=== PATIENT | male | born 1955 | race American Indian/Alaskan Native ===

== ENCOUNTER 2018-07-17 16:21 | Inpatient (IN) | payer BC ==
[2018-07-20 17:45] VITALS: BMI 31.8
[2018-07-20] MEDS ORDERED: Albuterol-Ipratrop 3 mg / 0.5 (3 ml) UD INH PRN (18:12)
[2018-07-20] MEDS ORDERED: Albuterol HFA 90 mcg/actuation (8 g) IH PRN (18:12)
[2018-07-20] MEDS ORDERED: Ergocalciferol 50,000 Intl Units Cap PO SCH (18:15)
[2018-07-20] MEDS ORDERED: Vancomycin 500 mg Inj IVPB SCH (19:15)
[2018-07-20 19:33] LABS: BASO # 0.2 K/uL (0.0-0.2); BASO % 1.1 % (0.0-2.0); EOS # 0.4 K/uL (0.0-0.7); EOS % 2.3 % (0.0-4.0); HEMOGLOBIN 10.2 g/dL (12.0-18.0); LYMPH # 1.6 K/uL (1.0-4.3); LYMPH % 10.4 % (20.0-40.0); MEAN CELL VOLUME 84.4 fl (80.0-94.0); MEAN CORPUSCULAR HEMOGLOBIN 27.2 pg (27.0-31.0); MEAN CORPUSCULAR HGB CONC 32.2 g/dL (33.0-37.0); MEAN PLATELET VOLUME 7.6 fl (7.2-11.7); MONO # 1.6 K/uL (0.0-0.8); MONO % 10.2 % (0.0-10.0); NEUT # 11.6 K/uL (1.8-7.0); NRBC % 0.1 % (0.0-0.0); RBC 3.74 Mil/uL (4.40-5.90); RED CELL DISTRIBUTION WIDTH 13.3 % (11.5-14.5); WHITE BLOOD COUNT 15.2 K/uL (4.8-10.8)
[2018-07-20 19:45] LABS: ALB/GLOB RATIO 0.8 (1.0-2.1); ALBUMIN 3.6 g/dL (3.5-5.0); ALT/SGPT 98 U/L (21-72); AST/SGOT 85 U/L (17-59); BLOOD UREA NITROGEN 17 mg/dl (9-20); CALCIUM 8.4 mg/dL (8.4-10.2); GFR NON-AFRICAN AMERICAN > 60
[2018-07-20] MEDS: oxyCODONE 10 mg Immediate Release Tab PO PRN (20:33)
[2018-07-20] MEDS: Fluticasone-Salmeterol 100-50mcg Diskus INH SCH ×2 (20:33→21:49)
[2018-07-20] MEDS ORDERED: Cefepime 1 GM in Sodium Chloride 0.9% 100 ML IVPB SCH (21:00)
[2018-07-20 22:27] LABS: URINE BACTERIA RARE (<OCC); URINE BILIRUBIN NEGATIVE (NEGATIVE); URINE BLOOD NEGATIVE (NEGATIVE); URINE CLARITY SLIGHTY-CLOUDY (Clear); URINE GLUCOSE (UA) NEG (NEGATIVE); URINE LEUKOCYTE ESTERASE NEG Leu/uL (Negative); URINE PROTEIN NEGATIVE (NEGATIVE)
[2018-07-20 22:57] LABS: URINE COLOR YELLOW (YELLOW)
[2018-07-21] MEDS: Aztreonam 1 GM in Sodium Chloride 0.9% 100 ML IVPB SCH ×3 (00:25→16:57)
[2018-07-21] MEDS: oxyCODONE 10 mg Immediate Release Tab PO PRN ×2 (03:31→11:36)
[2018-07-21] MEDS: Fluticasone-Salmeterol 100-50mcg Diskus INH SCH ×2 (09:09→21:28)
[2018-07-21] MEDS: Pantoprazole 40 mg EC Tab PO SCH (09:11)
[2018-07-21] MEDS: Multivitamin With Minerals Tab PO SCH (09:11)
[2018-07-21 11:53] LABS: HEMOGLOBIN 10.1 g/dL (12.0-18.0); MEAN CELL VOLUME 86.6 fl (80.0-94.0); MEAN CORPUSCULAR HEMOGLOBIN 27.7 pg (27.0-31.0); RBC 3.63 Mil/uL (4.40-5.90); RED CELL DISTRIBUTION WIDTH 13.2 % (11.5-14.5); WHITE BLOOD COUNT 13.9 K/uL (4.8-10.8)
[2018-07-21 12:09] LABS: SQUAMOUS EPITHIAL < 1 /hpf (0-5); URINE BILIRUBIN NEGATIVE (NEGATIVE); URINE BLOOD NEGATIVE (NEGATIVE); URINE CLARITY TURBID (Clear); URINE COLOR YELLOW (YELLOW); URINE GLUCOSE (UA) NEG (NEGATIVE); URINE LEUKOCYTE ESTERASE NEG Leu/uL (Negative); URINE PROTEIN NEGATIVE (NEGATIVE); URINE UROBILINOGEN 0.2-1.0 mg/dL (0.2-1.0)
[2018-07-21] MEDS: Magnesium Hydroxide Susp 30 ml UD PO PRN (12:49)
--- NOTE | 2018-07-21 13:03 | CP.PCM.CON ---
History of Present Illness - History of Present Illness History of Present Illness: 63 year old male referred for ID eval of post op fever s/p left TKR complicated by DVT at [facility] Past medical history: Asthma, HTN osteoarthritis s/p left total knee replacement, found to have a left popliteal DVT. Past surgical history: Left TKR Family history: + stroke and blood clots Social history: Denies tobacco, alcohol, and illicit drug use Allergies: PCN, shellfish Review of Systems - Review of Systems All systems: reviewed and no additional remarkable complaints except - Constitutional Constitutional: absent: As Per HPI, Anorexia, Chills, Daytime Sleepiness, Excessive Sweating, Fatigue, Fever, Frequent Falls, Headache, Increased Appetite, Lethargy, Malaise, Night Sweats, Snoring, Sleep Apnea, Weight Gain, Weight Loss, Weakness, Other - EENT Eyes: absent: As Per HPI, Blind Spots, Blurred Vision, Change in Vision, Decreased Night Vision, Diplopia, Discharge, Dry Eye, Exophthalmos, Floaters, Irritation, Itchy Eyes, Loss of Peripheral Vision, Pain, Photophobia, Requires Corrective Lenses, Sees Flashes, Spots in Vision, Tunnel Vision, Other Visual Disturbances, Loss of Vision, Other Ears: absent: As Per HPI, Decreased Hearing, Ear Discharge, Ear Pain, Tinnitus, Abnormal Hearing, Disequilibrium, Dizziness, Other Nose/Mouth/Throat: absent: As Per HPI, Epistaxis, Nasal Congestion, Nasal Disc harge, Nasal Obstruction, Nasal Trauma, Nose Pain, Post Nasal Drip, Sinus Pain, Sinus Pressure, Bleeding Gums, Change in Voice, Dental Pain, Dry Mouth, Dysphagia, Halitosis, Hoarsness, Lip Swelling, Mouth Lesions, Mouth Pain, Odynophagia, Sore Throat, Throat Swelling, Tongue Swelling, Facial Pain, Neck Pain, Neck Mass, Other - Cardiovascular Cardiovascular: absent: As Per HPI, Acrocyanosis, Chest Pain, Chest Pain at Rest, Chest Pain with Activity, Claudication, Diaphoresis, Dyspnea, Dyspnea on Exertion, Edema, Irregular Heart Rhythm, Pain Radiating to Arm/Neck/Jaw, Leg Edema, Leg Ulcers, Lightheadedness, Orthopnea, Palpitations, Paroxysmal Nocturnal Dyspnea, Pedal Edema, Radiating Pain, Rapid Heart Rate, Slow Heart Rate, Syncope, Other - Respiratory Respiratory: absent: As Per HPI, Cough, Dyspnea, Hemoptysis, Dyspnea on Exertion, Wheezing, Snoring, Stridor, Pain on Inspiration, Chest Congestion, Excessive Mucous Production, Change in Mucous Color, Pain with Coughing, Other - Gastrointestinal Gastrointestinal: absent: As Per HPI, Abdominal Pain, Belching, Bloating, Change in Bowel Habits, Change in Stool Character, Coffee Ground Emesis, Constipation, Cramping, Diarrhea, Dyspepsia, Dysphagia, Early Satiety, Excessive Flatus, Fecal Incontinence, Heartburn, Hematemesis, Hematochezia, Loose Stools, Melena, Nausea, Odynophagia, Temesmus, Vomiting, Other - Genitourinary Genitourinary: absent: As Per HPI, Change in Urinary Stream, Difficulty Urinating, Dysuria, Flank Pain, Hematuria, Pyuria, Nocturia, Urinary Incontinence, Urinary Frequency, Urinary Hesitance, Urinary Urgency, Voiding Freq/Small Amts, Freq UTI, Hx Renal/Bladder Calculi, Hx /Renal Surgery, Bladder Distension, Other - Musculoskeletal Musculoskeletal: As Per HPI - Integumentary Integumentary: As Per HPI - Neurological Neurological: absent: As Per HPI, Abnormal Gait, Abnormal Hearing, Abnormal Movements, Abnormal Speech, Behavioral Changes, Burning Sensations, Confusion, Convulsions, Disequilibrium, Dizziness, Numbness, Focal Weakness, Frequent Falls, Headaches, Lack of Coordination, Loss of Vision, Memory Loss, Paresthesias, Radicular Pain, Restless Legs, Sensory Deficit, Syncope, Tingling, Tremor, Vertigo, Weakness, Other Visual Disturbances, Other - Psychiatric Psychiatric: absent: As Per HPI, Abnormal Sleep Pattern, Anhedonia, Anxiety, Auditory Hallucinations, Behavioral Changes, Change in Appetite, Change in Libido, Confusion, Depression, Difficulty Concentrating, Hallucinations, Ho micidal Ideation, Hopelessness, Irritability, Memory Loss, Mood Swings, Panic Attacks, Paranoia, Suicidal Ideation, Visual Hallucinations, Tactile Hallucinations, Other - Endocrine Endocrine: absent: As Per HPI, Change in Body Appearance, Change in Libido, Cold Intolorance, Deepening of Voice, Excessive Sweating, Fatigue, Flushing, Heat Intolorance, Increase in Ring/Shoe/Hat Size, Palpitations, Polydipsia, Polyphagia, Polyuria, Other - Hematologic/Lymphatic Hematologic: absent: As Per HPI, Easy Bleeding, Easy Bruising, Lymphadenopathy, Other Past Patient History - Past Medical History & Family History Past Medical History?: Yes - Past Social History Smoking Status: Never Smoked - CARDIAC Hx Cardiac Disorders: Yes Hx Angina: Yes - PULMONARY Hx Respiratory Disorders: Yes Hx Asthma: Yes Hx Chronic Obstructive Pulmonary Disease (COPD): Yes - NEUROLOGICAL Hx Neurological Disorder: Yes Hx Dizziness: Yes (sometimes ) - HEENT Hx HEENT Problems: Yes (deviated septum repair) - RENAL Hx Chronic Kidney Disease: No - ENDOCRINE/METABOLIC Hx Endocrine Disorders: No - HEMATOLOGICAL/ONCOLOGICAL Hx Blood Disorders: Yes Hx Shingles: Yes - INTEGUMENTARY Hx Dermatological Problems: No - MUSCULOSKELETAL/RHEUMATOLOGICAL Hx Degenerative Joint Disease: Yes Hx Falls: No Hx Osteoarthritis: Yes - GASTROINTESTINAL Hx Gastrointestinal Disorders: No - GENITOURINARY/GYNECOLOGICAL Hx Urinary Tract Infection: Yes - PSYCHIATRIC Hx Substance Use: No - SURGICAL HISTORY Hx Surgeries: Yes Hx Arthroscopy: Yes (left shoulder torn rotator cuff repair) Hx Herniorrhaphy: Yes (ventral) Hx Joint Replacement: Yes Other/Comment: deviated septal repair - ANESTHESIA Hx Anesthesia: Yes Hx Anesthesia Reactions: No Hx Malignant Hyperthermia: No Meds Allergies/Adverse Reactions: Allergies Allergy/AdvReac Type Severity Reaction Status Date / Time Penicillins Allergy Intermediate RASH Verified 07/20/18 16:33 shellfish derived Allergy Intermediate RASH Verified 07/20/18 16:33 shrimp Allergy Intermediate RASH Verified 07/20/18 16:33 - Medications Medications: Current Medications Acetaminophen (Tylenol 325mg Tab) 650 mg PO Q6 PRN PRN Reason: Pain, Mild (1-3) Acetaminophen (Tylenol 325mg Tab) 650 mg PO Q6 PRN PRN Reason: Fever >100.4 F Last Admin: 07/20/18 20:36 Dose: 650 mg Albuterol (Ventolin Hfa 90 Mcg/Actuation (8 G)) 2 puff IH TID PRN PRN Reason: Shortness of Breath Albuterol/Ipratropium (Duoneb 3 Mg/0.5 Mg (3 Ml) Ud) 3 ml INH RQ6 PRN PRN Reason: Shortness of Breath Last Admin: 07/20/18 19:08 Dose: 3 ml Apixaban (Eliquis) 10 mg PO BID [facility]; Protocol Last Admin: 07/21/18 09:11 Dose: 10 mg Docusate Sodium (Colace) 100 mg PO BID [facility] Last Admin: 07/21/18 09:10 Dose: 100 mg Ergocalciferol (Drisdol 50,000 Intl Units Cap) 1 cap PO QWK [facility] Hydromorphone HCl (Dilaudid) 2 mg PO Q6 PRN PRN Reason: Pain, severe (8-10) Aztreonam 1 gm/ Sodium (Chloride) 100 mls @ 100 mls/hr IVPB Q8 [facility]; Protocol Last Admin: 07/21/18 09:09 Dose: 100 mls/hr Vancomycin HCl 1,250 mg/ (Sodium Chloride) 250 mls @ 250 mls/hr IVPB Q12H [facility]; Protocol Last Admin: 07/21/18 12:46 Dose: 250 mls/hr Magnesium Hydroxide (Milk Of Magnesia) 30 ml PO HS PRN PRN Reason: Constipation Last Admin: 07/21/18 12:49 Dose: 30 ml Montelukast Sodium (Singulair) 10 mg PO DAILY [facility] Last Admin: 07/21/18 09:11 Dose: 10 mg Multivitamins/Minerals (Therapeutic-M Tab) 1 tab PO DAILY [facility] Last Admin: 07/21/18 09:11 Dose: 1 tab Oxycodone HCl (Oxycodone Immediate Release Tab) 10 mg PO Q4H PRN PRN Reason: Pain, moderate (4-7) Last Admin: 07/21/18 11:36 Dose: 10 mg Pantoprazole Sodium (Protonix Ec Tab) 40 mg PO DAILY [facility] Last Admin: 07/21/18 09:11 Dose: 40 mg Pregabalin (Lyrica) 50 mg PO BID [facility] Last Admin: 07/21/18 09:14 Dose: 50 mg Fluticasone/Salmeterol (Advair Diskus 100/50) 1 puff INH Q12 [facility] Last Admin: 07/21/18 09:09 Dose: 1 puff Physical Exam - Constitutional Appears: Non-toxic, No Acute Distress, Chronically Ill - Head Exam Head Exam: ATRAUMATIC, NORMOCEPHALIC - Eye Exam Eye Exam: PERRL. absent: Scleral icterus - ENT Exam ENT Exam: Mucous Membranes Dry, Normal External Ear Exam, Normal Oropharynx - Neck Exam Neck exam: Negative for: Lymphadenopathy, Thyromegaly - Respiratory Exam Respiratory Exam: Decreased Breath Sounds, Prolonged Expiratory Phase, Rhonchi - Cardiovascular Exam Cardiovascular Exam: REGULAR RHYTHM, +S1, +S2 - GI/Abdominal Exam GI & Abdominal Exam: Diminished Bowel Sounds, Distended, Soft. absent: Tenderness - Rectal Exam Rectal Exam: Deferred - Exam Exam: NORMAL INSPECTION - Extremities Exam Extremities exam: Positive for: joint swelling, tenderness, pedal pulses present. Negative for: calf tenderness, normal inspection, pedal edema Additional comments: painful swelling LLE due to recent surgery and DVT no pus wound healing no drainage - Back Exam Back exam: absent: CVA tenderness (L), CVA tenderness (R) - Neurological Exam Neurological exam: Alert, CN II-XII Intact, Oriented x3, Reflexes Normal - Psychiatric Exam Psychiatric exam: Depressed - Skin Skin Exam: Dry Results - Vital Signs Recent Vital Signs: Last Vital Signs Temp 98.8 F 07/21/18 08:05 Pulse 84 07/21/18 11:15 Resp 20 07/21/18 08:05 BP 123/80 07/21/18 08:05 Pulse Ox 98 07/21/18 11:15 - Labs Result Diagrams: 07/21/18 11:46 07/20/18 19:01 Labs: Laboratory Results - last 24 hr 07/20/18 07/20/18 07/20/18 19:01 19:01 19:01 WBC 15.2 H RBC 3.74 L Hgb 10.2 L Hct 31.6 L MCV 84.4 MCH 27.2 MCHC 32.2 L RDW 13.3 Plt Count 388 MPV 7.6 Neut % (Auto) 76.0 H Lymph % (Auto) 10.4 L [place] % (Auto) 10.2 H Eos % (Auto) 2.3 Baso % (Auto) 1.1 Neut # (Auto) 11.6 H Lymph # (Auto) 1.6 [place] # (Auto) 1.6 H Eos # (Auto) 0.4 Baso # (Auto) 0.2 ESR 96 H Sodium 133 Potassium 4.5 Chloride 100 Carbon Dioxide 26 Anion Gap 12 BUN 17 Creatinine 0.9 Est GFR ( Amer) > 60 Est GFR (Non-Af Amer) > 60 Random Glucose 146 H Lactic Acid Calcium 8.4 Phosphorus 3.6 Magnesium 2.1 Total Bilirubin 1.0 AST 85 H D ALT 98 H Alkaline Phosphatase 180 H D Total Protein 7.8 Albumin 3.6 Globulin 4.3 H Albumin/Globulin Ratio 0.8 L Urine Color Urine Clarity Urine pH Ur Specific [place] Urine Protein Urine Glucose (UA) Urine Ketones Urine Blood Urine Nitrate Urine Bilirubin Urine Urobilinogen Ur Leukocyte Esterase Urine RBC (Auto) Urine Microscopic WBC Ur Squamous Epith Cells Urine Bacteria Vancomycin Trough 8.5 07/20/18 07/21/18 07/21/18 22:10 11:46 11:46 WBC 13.9 H RBC 3.63 L Hgb 10.1 L Hct 31.5 L MCV 86.6 D MCH 27.7 MCHC 32.0 L RDW 13.2 Plt Count 434 H MPV Neut % (Auto) Lymph % (Auto) [place] % (Auto) Eos % (Auto) Baso % (Auto) Neut # (Auto) Lymph # (Auto) [place] # (Auto) Eos # (Auto) Baso # (Auto) ESR Sodium Potassium Chloride Carbon Dioxide Anion Gap BUN Creatinine Est GFR ( Amer) Est GFR (Non-Af Amer) Random Glucose Lactic Acid 0.8 Calcium Phosphorus Magnesium Total Bilirubin AST ALT Alkaline Phosphatase Total Protein Albumin Globulin Albumin/Globulin Ratio Urine Color Yellow Urine Clarity Slighty-cloudy Urine pH 5.0 Ur Specific [place] 1.025 Urine Protein Negative Urine Glucose (UA) Neg Urine Ketones Negative Urine Blood Negative Urine Nitrate Negative Urine Bilirubin Negative Urine Urobilinogen 1.0 Ur Leukocyte Esterase Neg Urine RBC (Auto) 3 Urine Microscopic WBC 2 Ur Squamous Epith Cells Urine Bacteria Rare Vancomycin Trough 07/21/18 11:53 WBC RBC Hgb Hct MCV MCH MCHC RDW Plt Count MPV Neut % (Auto) Lymph % (Auto) [place] % (Auto) Eos % (Auto) Baso % (Auto) Neut # (Auto) Lymph # (Auto) [place] # (Auto) Eos # (Auto) Baso # (Auto) ESR Sodium Potassium Chloride Carbon Dioxide Anion Gap BUN Creatinine Est GFR ( Amer) Est GFR (Non-Af Amer) Random Glucose Lactic Acid Calcium Phosphorus Magnesium Total Bilirubin AST ALT Alkaline Phosphatase Total Protein Albumin Globulin Albumin/Globulin Ratio Urine Color Yellow Urine Clarity Turbid Urine pH 7.0 Ur Specific [place] 1.005 Urine Protein Negative Urine Glucose (UA) Neg Urine Ketones Negative Urine Blood Negative Urine Nitrate Negative Urine Bilirubin Negative Urine Urobilinogen 0.2-1.0 Ur Leukocyte Esterase Neg Urine RBC (Auto) 1 Urine Microscopic WBC 1 Ur Squamous Epith Cells < 1 Urine Bacteria Vancomycin Trough Assessment & Plan (1) Acute blood loss as cause of postoperative anemia Status: Acute (2) Anemia Status: Acute (3) DVT (deep venous thrombosis) Status: Acute (4) HTN (hypertension) Status: Acute (5) Leukocytosis Status: Acute (6) Postoperative fever Status: Acute (7) Primary osteoarthritis of left knee Status: Acute (8) Status post left knee replacement Status: Acute - Assessment and Plan (Free Text) Assessment: Post op fever recent DVT s/p Left TKR Hx OA abnormal LFT s/p transfusion r/o infection will review CXR and all cultures Cont Vanco/ Azactam for now Check Hep Panel
--- NOTE | 2018-07-21 15:05 | CP.PCM.PN ---
Subjective - Date & Time of Evaluation Date of Evaluation: 07/21/18 Time of Evaluation: 14:00 - Subjective Subjective: Patient seen and examined at beside. at bedside as well. Pain and swelling continues to improve. Temp spike last night to 102.5. ID on consult. Denies CP/SOB/dizziness/cough/dysuria. Objective - Vital Signs/Intake and Output Vital Signs (last 24 hours): Temp Pulse Resp BP Pulse Ox 98.8 F 84 20 123/80 98 07/21/18 08:05 07/21/18 11:15 07/21/18 08:05 07/21/18 08:05 07/21/18 11:15 - Medications Medications: Current Medications Acetaminophen (Tylenol 325mg Tab) 650 mg PO Q6 PRN PRN Reason: Pain, Mild (1-3) Acetaminophen (Tylenol 325mg Tab) 650 mg PO Q6 PRN PRN Reason: Fever >100.4 F Last Admin: 07/20/18 20:36 Dose: 650 mg Albuterol (Ventolin Hfa 90 Mcg/Actuation (8 G)) 2 puff IH TID PRN PRN Reason: Shortness of Breath Albuterol/Ipratropium (Duoneb 3 Mg/0.5 Mg (3 Ml) Ud) 3 ml INH RQ6 PRN PRN Reason: Shortness of Breath Last Admin: 07/20/18 19:08 Dose: 3 ml Apixaban (Eliquis) 10 mg PO BID [facility]; Protocol Last Admin: 07/21/18 09:11 Dose: 10 mg Docusate Sodium (Colace) 100 mg PO BID [facility] Last Admin: 07/21/18 09:10 Dose: 100 mg Ergocalciferol (Drisdol 50,000 Intl Units Cap) 1 cap PO QWK [facility] Hydromorphone HCl (Dilaudid) 2 mg PO Q6 PRN PRN Reason: Pain, severe (8-10) Aztreonam 1 gm/ Sodium (Chloride) 100 mls @ 100 mls/hr IVPB Q8 [facility]; Protocol Last Admin: 07/21/18 09:09 Dose: 100 mls/hr Vancomycin HCl 1,250 mg/ (Sodium Chloride) 250 mls @ 250 mls/hr IVPB Q12H [facility]; Protocol Last Admin: 07/21/18 12:46 Dose: 250 mls/hr Magnesium Hydroxide (Milk Of Magnesia) 30 ml PO HS PRN PRN Reason: Constipation Last Admin: 07/21/18 12:49 Dose: 30 ml Montelukast Sodium (Singulair) 10 mg PO DAILY [facility] Last Admin: 07/21/18 09:11 Dose: 10 mg Multivitamins/Minerals (Therapeutic-M Tab) 1 tab PO DAILY [facility] Last Admin: 07/21/18 09:11 Dose: 1 tab Oxycodone HCl (Oxycodone Immediate Release Tab) 10 mg PO Q4H PRN PRN Reason: Pain, moderate (4-7) Last Admin: 07/21/18 11:36 Dose: 10 mg Pantoprazole Sodium (Protonix Ec Tab) 40 mg PO DAILY [facility] Last Admin: 07/21/18 09:11 Dose: 40 mg Pregabalin (Lyrica) 50 mg PO BID [facility] Last Admin: 07/21/18 09:14 Dose: 50 mg Fluticasone/Salmeterol (Advair Diskus 100/50) 1 puff INH Q12 [facility] Last Admin: 07/21/18 09:09 Dose: 1 puff - Labs Labs: 07/21/18 11:46 07/20/18 19:01 - Extremities Exam Additional comments: LLE: bulky winter dressing CDI Dressings CDI Incision CDI with nylon sutures, no drainage mild ecchymosis anteriorly mild swelling sensation intact SP/DP/TN motor intact EHL/FHL/TA/G pedal pulses intact comps soft NT B/l Assessment and Plan (1) Status post left knee replacement Assessment & Plan: -repeat CXR, ID on board, abx as per ID -PT/OT WBAT -Dressings and bulky winter dressings changed, swelling improved -DVT tx -pain control -above d/w Dr. Kahn in agreement Status: Acute
[2018-07-21 22:00] LABS: HEPATITIS B SURFACE AG Negative (NEGATIVE)
[2018-07-21 22:05] LABS: HEPATITIS A IGM NEGATIVE (NEGATIVE); HEPATITIS B CORE AB NEGATIVE (NEGATIVE)
[2018-07-21 22:17] LABS: HEPATITIS C ANTIBODY NEGATIVE (NEGATIVE)
[2018-07-22] MEDS: Aztreonam 1 GM in Sodium Chloride 0.9% 100 ML IVPB SCH ×3 (00:49→17:32)
[2018-07-22 06:18] LABS: BASO # 0.1 K/uL (0.0-0.2); BASO % 0.9 % (0.0-2.0); EOS # 0.4 K/uL (0.0-0.7); EOS % 3.7 % (0.0-4.0); HEMOGLOBIN 10.1 g/dL (12.0-18.0); LYMPH # 1.9 K/uL (1.0-4.3); MEAN CORPUSCULAR HEMOGLOBIN 26.8 pg (27.0-31.0); MEAN CORPUSCULAR HGB CONC 31.5 g/dL (33.0-37.0); MEAN PLATELET VOLUME 7.6 fl (7.2-11.7); MONO # 1.4 K/uL (0.0-0.8); MONO % 11.7 % (0.0-10.0); NEUT % 67.7 % (50.0-75.0); NRBC % 0.1 % (0.0-0.0); RBC 3.77 Mil/uL (4.40-5.90); RED CELL DISTRIBUTION WIDTH 13.4 % (11.5-14.5); WHITE BLOOD COUNT 11.8 K/uL (4.8-10.8)
[2018-07-22 06:20] LABS: ALB/GLOB RATIO 0.9 (1.0-2.1); ALBUMIN 3.6 g/dL (3.5-5.0); ALT/SGPT 94 U/L (21-72); AST/SGOT 82 U/L (17-59); BLOOD UREA NITROGEN 15 mg/dl (9-20); CALCIUM 8.8 mg/dL (8.4-10.2); GFR NON-AFRICAN AMERICAN > 60
[2018-07-22] MEDS: oxyCODONE 10 mg Immediate Release Tab PO PRN ×5 (08:19→17:31)
[2018-07-22] MEDS: Pantoprazole 40 mg EC Tab PO SCH (08:20)
[2018-07-22] MEDS: Multivitamin With Minerals Tab PO SCH (08:20)
[2018-07-22] MEDS: Magnesium Hydroxide Susp 30 ml UD PO PRN (08:22)
--- NOTE | 2018-07-22 08:41 | RAD ---
Date of service: 07/21/2018 HISTORY: fever, ?cardiomegaly COMPARISON: No prior. TECHNIQUE: Chest PA and lateral FINDINGS: LUNGS: Right PICC pay placed with the tip terminating at the distal superior vena cava. No acute airspace disease bilaterally. PLEURA: No significant pleural effusion identified. No pneumothorax apparent. CARDIOVASCULAR: No aortic atherosclerotic calcification present. Normal cardiac size. No pulmonary vascular congestion. OSSEOUS STRUCTURES: No significant abnormalities. VISUALIZED UPPER ABDOMEN: Normal. OTHER FINDINGS: None. IMPRESSION: Status post right PICC insertion as discussed above. No acute cardiopulmonary disease appreciated.
[2018-07-22] MEDS: Fluticasone-Salmeterol 100-50mcg Diskus INH SCH ×2 (09:00→21:18)
--- NOTE | 2018-07-22 11:02 | CP.PCM.CON ---
History of Present Illness - History of Present Illness History of Present Illness: I was asked to evaluate patient by Dr Steinberg. Patient seen 07/22/18 1030 Patient is a 63 year old male with HTN, s/p L TKR complicated by popliteal DVT who presents for rehab. I was called for possible cardiomegaly on liana xray. The patient has no chest pain or dyspnea. He denies palpitations. Preoperative echcoardiogram reveals normal LV function. Review of Systems - Constitutional Constitutional: Fever - EENT Eyes: absent: As Per HPI, Blind Spots, Blurred Vision, Change in Vision, Decreased Night Vision, Diplopia, Discharge, Dry Eye, Exophthalmos, Floaters, Irritation, Itchy Eyes, Loss of Peripheral Vision, Pain, Photophobia, Requires Corrective Lenses, Sees Flashes, Spots in Vision, Tunnel Vision, Other Visual Disturbances, Loss of Vision, Other Ears: absent: As Per HPI, Decreased Hearing, Ear Discharge, Ear Pain, Tinnitus, Abnormal Hearing, Disequilibrium, Dizziness, Other Nose/Mouth/Throat: absent: As Per HPI, Epistaxis, Nasal Congestion, Nasal Discharge, Nasal Obstruction, Nasal Trauma, Nose Pain, Post Nasal Drip, Sinus Pain, Sinus Pressure, Bleeding Gums, Change in Voice, Dental Pain, Dry Mouth, Dysphagia, Halitosis, Hoarsness, Lip Swelling, Mouth Lesions, Mouth Pain, Odynophagia, Sore Throat, Throat Swelling, Tongue Swelling, Facial Pain, Neck Pain, Neck Mass, Other - Cardiovascular Cardiovascular: absent: As Per HPI, Acrocyanosis, Chest Pain, Chest Pain at Rest, Chest Pain with Activity, Claudication, Diaphoresis, Dyspnea, Dyspnea on Exertion, Edema, Irregular Heart Rhythm, Pain Radiating to Arm/Neck/Jaw, Leg Edema, Leg Ulcers, Lightheadedness, Orthopnea, Palpitations, Paroxysmal Nocturnal Dyspnea, Pedal Edema, Radiating Pain, Rapid Heart Rate, Slow Heart Rate, Syncope, Other - Respiratory Respiratory: absent: As Per HPI, Cough, Dyspnea, Hemoptysis, Dyspnea on Exertion, Wheezing, Snoring, Stridor, Pain on Inspiration, Chest Congestion, Excessive Mucous Production, Change in Mucous Color, Pain with Coughing, Other - Gastrointestinal Gastrointestinal: absent: As Per HPI, Abdominal Pain, Belching, Bloating, Change in Bowel Habits, Change in Stool Character, Coffee Ground Emesis, Constipation, Cramping, Diarrhea, Dyspepsia, Dysphagia, Early Satiety, Excessive Flatus, Fecal Incontinence, Heartburn, Hematemesis, Hematochezia, Loose Stools, Melena, Nausea, Odynophagia, Temesmus, Vomiting, Other - Genitourinary Genitourinary: absent: As Per HPI, Change in Urinary Stream, Difficulty Urinating, Dysuria, Flank Pain, Hematuria, Pyuria, Nocturia, Urinary Incontinence, Urinary Frequency, Urinary Hesitance, Urinary Urgency, Voiding Freq/Small Amts, Freq UTI, Hx Renal/Bladder Calculi, Hx /Renal Surgery, Bladder Distension, Other - Musculoskeletal Musculoskeletal: Radiating Pain into Limb - Integumentary Integumentary: absent: As Per HPI, Acne, Alopecia, Bleeding Lesions, Change in Hair, Change in Nails, Change in Pigmentation, Changing Lesions, Dry Skin, Erythema, Furuncle, Hirsutism, Lesions, New Lesions, Non-Healing Lesions, Photosensitivity, Pruritus, Rash, Skin Pain, Skin Ulcer, Sores, Striae, Swelling, Unusual Bruising, Wounds, Jaundice, Other - Neurological Neurological: absent: As Per HPI, Abnormal Gait, Abnormal Hearing, Abnormal Movements, Abnormal Speech, Behavioral Changes, Burning Sensations, Confusion, Convulsions, Disequilibrium, Dizziness, Numbness, Focal Weakness, Frequent Falls, Headaches, Lack of Coordination, Loss of Vision, Memory Loss, Paresthesias, Radicular Pain, Restless Legs, Sensory Deficit, Syncope, Tingling, Tremor, Vertigo, Weakness, Other Visual Disturbances, Other - Psychiatric Psychiatric: absent: As Per HPI, Abnormal Sleep Pattern, Anhedonia, Anxiety, Auditory Hallucinations, Behavioral Changes, Change in Appetite, Change in Libido, Confusion, Depression, Difficulty Concentrating, Hallucinations, Homicidal Ideation, Hopelessness, Irritability, Memory Loss, Mood Swings, Panic Attacks, Paranoia, Suicidal Ideation, Visual Hallucinations, Tactile Hallucinations, Other - Endocrine Endocrine: absent: As Per HPI, Change in Body Appearance, Change in Libido, Cold Intolorance, Deepening of Voice, Excessive Sweating, Fatigue, Flushing, Heat Intolorance, Increase in Ring/Shoe/Hat Size, Palpitations, Polydipsia, Polyphagia, Polyuria, Other - Hematologic/Lymphatic Hematologic: absent: As Per HPI, Easy Bleeding, Easy Bruising, Lymphadenopathy, Other Past Patient History - Past Medical History & Family History Past Medical History?: Yes - Past Social History Smoking Status: Never Smoked - CARDIAC Hx Cardiac Disorders: Yes Hx Angina: Yes - PULMONARY Hx Respiratory Disorders: Yes Hx Asthma: Yes Hx Chronic Obstructive Pulmonary Disease (COPD): Yes - NEUROLOGICAL Hx Neurological Disorder: Yes Hx Dizziness: Yes (sometimes ) - HEENT Hx HEENT Problems: Yes (deviated septum repair) - RENAL Hx Chronic Kidney Disease: No - ENDOCRINE/METABOLIC Hx Endocrine Disorders: No - HEMATOLOGICAL/ONCOLOGICAL Hx Blood Disorders: Yes Hx Shingles: Yes - INTEGUMENTARY Hx Dermatological Problems: No - MUSCULOSKELETAL/RHEUMATOLOGICAL Hx Degenerative Joint Disease: Yes Hx Falls: No Hx Osteoarthritis: Yes - GASTROINTESTINAL Hx Gastrointestinal Disorders: No - GENITOURINARY/GYNECOLOGICAL Hx Urinary Tract Infection: Yes - PSYCHIATRIC Hx Substance Use: No - SURGICAL HISTORY Hx Surgeries: Yes Hx Arthroscopy: Yes (left shoulder torn rotator cuff repair) Hx Herniorrhaphy: Yes (ventral) Hx Joint Replacement: Yes Other/Comment: deviated septal repair - ANESTHESIA Hx Anesthesia: Yes Hx Anesthesia Reactions: No Hx Malignant Hyperthermia: No Meds Allergies/Adverse Reactions: Allergies Allergy/AdvReac Type Severity Reaction Status Date / Time Penicillins Allergy Intermediate RASH Verified 07/20/18 16:33 shellfish derived Allergy Intermediate RASH Verified 07/20/18 16:33 shrimp Allergy Intermediate RASH Verified 07/20/18 16:33 - Medications Medications: Current Medications Acetaminophen (Tylenol 325mg Tab) 650 mg PO Q6 PRN PRN Reason: Pain, Mild (1-3) Acetaminophen (Tylenol 325mg Tab) 650 mg PO Q6 PRN PRN Reason: Fever >100.4 F Last Admin: 07/21/18 19:58 Dose: 650 mg Albuterol (Ventolin Hfa 90 Mcg/Actuation (8 G)) 2 puff IH TID PRN PRN Reason: Shortness of Breath Albuterol/Ipratropium (Duoneb 3 Mg/0.5 Mg (3 Ml) Ud) 3 ml INH RQ6 PRN PRN Reason: Shortness of Breath Last Admin: 07/20/18 19:08 Dose: 3 ml Apixaban (Eliquis) 10 mg PO BID [facility]; Protocol Last Admin: 07/22/18 08:20 Dose: 10 mg Docusate Sodium (Colace) 100 mg PO BID [facility] Last Admin: 07/22/18 08:20 Dose: 100 mg Ergocalciferol (Drisdol 50,000 Intl Units Cap) 1 cap PO QWK [facility] Hydromorphone HCl (Dilaudid) 2 mg PO Q6 PRN PRN Reason: Pain, severe (8-10) Last Admin: 07/22/18 01:57 Dose: 2 mg Aztreonam 1 gm/ Sodium (Chloride) 100 mls @ 100 mls/hr IVPB Q8 [facility]; Protocol Last Admin: 07/22/18 08:11 Dose: 100 mls/hr Vancomycin HCl 1,250 mg/ (Sodium Chloride) 250 mls @ 250 mls/hr IVPB Q12H [facility]; Protocol Last Admin: 07/21/18 23:04 Dose: 250 mls/hr Magnesium Hydroxide (Milk Of Magnesia) 30 ml PO HS PRN PRN Reason: Constipation Last Admin: 07/22/18 08:22 Dose: 30 ml Montelukast Sodium (Singulair) 10 mg PO DAILY [facility] Last Admin: 07/22/18 08:20 Dose: 10 mg Multivitamins/Minerals (Therapeutic-M Tab) 1 tab PO DAILY [facility] Last Admin: 07/22/18 08:20 Dose: 1 tab Oxycodone HCl (Oxycodone Immediate Release Tab) 10 mg PO Q4H PRN PRN Reason: Pain, moderate (4-7) Last Admin: 07/22/18 08:19 Dose: 10 mg Pantoprazole Sodium (Protonix Ec Tab) 40 mg PO DAILY [facility] Last Admin: 07/22/18 08:20 Dose: 40 mg Pregabalin (Lyrica) 50 mg PO BID [facility] Last Admin: 07/22/18 08:19 Dose: 50 mg Fluticasone/Salmeterol (Advair Diskus 100/50) 1 puff INH Q12 [facility] Last Admin: 07/21/18 21:28 Dose: 1 puff Physical Exam - Constitutional Appears: Non-toxic - Head Exam Head Exam: NORMAL INSPECTION - Eye Exam Eye Exam: Normal appearance - ENT Exam ENT Exam: Mucous Membranes Moist - Neck Exam Neck exam: Positive for: Full Rom - Respiratory Exam Respiratory Exam: NORMAL BREATHING PATTERN - Cardiovascular Exam Cardiovascular Exam: REGULAR RHYTHM - GI/Abdominal Exam GI & Abdominal Exam: Normal Bowel Sounds - Rectal Exam Rectal Exam: Deferred - Extremities Exam Extremities exam: Positive for: normal inspection - Back Exam Back exam: NORMAL INSPECTION - Neurological Exam Neurological exam: Alert, Oriented x3 - Psychiatric Exam Psychiatric exam: Normal Affect - Skin Skin Exam: Normal Color Results - Vital Signs Recent Vital Signs: Last Vital Signs Temp 99.3 F 07/22/18 07:58 Pulse 107 H 07/22/18 07:58 Resp 20 07/22/18 07:58 BP 106/75 07/22/18 07:58 Pulse Ox 98 07/22/18 07:58 - Labs Result Diagrams: 07/22/18 05:25 07/22/18 05:25 Labs: Laboratory Results - last 24 hr 07/21/18 07/21/18 07/21/18 11:46 11:46 11:53 WBC 13.9 H RBC 3.63 L Hgb 10.1 L Hct 31.5 L MCV 86.6 D MCH 27.7 MCHC 32.0 L RDW 13.2 Plt Count 434 H MPV Neut % (Auto) Lymph % (Auto) [place] % (Auto) Eos % (Auto) Baso % (Auto) Neut # (Auto) Lymph # (Auto) [place] # (Auto) Eos # (Auto) Baso # (Auto) Sodium Potassium Chloride Carbon Dioxide Anion Gap BUN Creatinine Est GFR ( Amer) Est GFR (Non-Af Amer) Random Glucose Lactic Acid 0.8 Calcium Total Bilirubin AST ALT Alkaline Phosphatase Total Protein Albumin Globulin Albumin/Globulin Ratio Urine Color Yellow Urine Clarity Turbid Urine pH 7.0 Ur Specific [place] 1.005 Urine Protein Negative Urine Glucose (UA) Neg Urine Ketones Negative Urine Blood Negative Urine Nitrate Negative Urine Bilirubin Negative Urine Urobilinogen 0.2-1.0 Ur Leukocyte Esterase Neg Urine RBC (Auto) 1 Urine Microscopic WBC 1 Ur Squamous Epith Cells < 1 Hepatitis A IgM Ab Hep Bs Antigen Hep B Core IgM Ab Hepatitis C Antibody HIV 1&2 Antibody Screen 07/21/18 07/21/18 07/22/18 15:50 15:50 05:25 WBC 11.8 H RBC 3.77 L Hgb 10.1 L Hct 32.1 L MCV 85.0 MCH 26.8 L MCHC 31.5 L RDW 13.4 Plt Count 447 H MPV 7.6 Neut % (Auto) 67.7 Lymph % (Auto) 16.0 L [place] % (Auto) 11.7 H Eos % (Auto) 3.7 Baso % (Auto) 0.9 Neut # (Auto) 8.0 H Lymph # (Auto) 1.9 [place] # (Auto) 1.4 H Eos # (Auto) 0.4 Baso # (Auto) 0.1 Sodium Potassium Chloride Carbon Dioxide Anion Gap BUN Creatinine Est GFR ( Amer) Est GFR (Non-Af Amer) Random Glucose Lactic Acid Calcium Total Bilirubin AST ALT Alkaline Phosphatase Total Protein Albumin Globulin Albumin/Globulin Ratio Urine Color Urine Clarity Urine pH Ur Specific [place] Urine Protein Urine Glucose (UA) Urine Ketones Urine Blood Urine Nitrate Urine Bilirubin Urine Urobilinogen Ur Leukocyte Esterase Urine RBC (Auto) Urine Microscopic WBC Ur Squamous Epith Cells Hepatitis A IgM Ab Negative Hep Bs Antigen Negative Hep B Core IgM Ab Negative Hepatitis C Antibody Negative HIV 1&2 Antibody Screen Negative 07/22/18 05:25 WBC RBC Hgb Hct MCV MCH MCHC RDW Plt Count MPV Neut % (Auto) Lymph % (Auto) [place] % (Auto) Eos % (Auto) Baso % (Auto) Neut # (Auto) Lymph # (Auto) [place] # (Auto) Eos # (Auto) Baso # (Auto) Sodium 134 Potassium 4.5 Chloride 98 Carbon Dioxide 29 Anion Gap 12 BUN 15 Creatinine 0.8 Est GFR ( Amer) > 60 Est GFR (Non-Af Amer) > 60 Random Glucose 118 H Lactic Acid Calcium 8.8 Total Bilirubin 1.0 AST 82 H ALT 94 H Alkaline Phosphatase 178 H Total Protein 7.7 Albumin 3.6 Globulin 4.1 H Albumin/Globulin Ratio 0.9 L Urine Color Urine Clarity Urine pH Ur Specific [place] Urine Protein Urine Glucose (UA) Urine Ketones Urine Blood Urine Nitrate Urine Bilirubin Urine Urobilinogen Ur Leukocyte Esterase Urine RBC (Auto) Urine Microscopic WBC Ur Squamous Epith Cells Hepatitis A IgM Ab Hep Bs Antigen Hep B Core IgM Ab Hepatitis C Antibody HIV 1&2 Antibody Screen - EKG Data EKG Interpreted by: Myself Assessment & Plan (1) HTN (hypertension) Assessment and Plan: blood pressure is well controlled. The finding of cardiomegaly on CXR is likely technical. continue medical therapy. Status: Acute (2) DVT (deep venous thrombosis) Assessment and Plan: continue anticoagulation Status: Acute
--- NOTE | 2018-07-22 12:27 | CP.PCM.PN ---
Subjective - Date & Time of Evaluation Date of Evaluation: 07/22/18 Time of Evaluation: 12:18 - Subjective Subjective: Pt seen and examined. Pt states he is feeling a little better. Pain mildly improved. T max 100.5, 99.3 this AM L knee: swelling decreased; thigh and calf soft, NT incision with no drainage some eccymosis laterally NVI distally dressing reapplied AROM -5 to 50 deg flexion WBC 11.8 Plan Pt still currently getting low grade fevers. May be secondary to DVT or hemarthrosis. Spoke to patient and , if patient continues to have temp will plan for I&d and evacuation of hematoma. For now, cont abx, PT. Objective - Vital Signs/Intake and Output Vital Signs (last 24 hours): Temp Pulse Resp BP Pulse Ox 99.3 F 107 H 20 106/75 98 07/22/18 07:58 07/22/18 07:58 07/22/18 07:58 07/22/18 07:58 07/22/18 07:58 - Medications Medications: Current Medications Acetaminophen (Tylenol 325mg Tab) 650 mg PO Q6 PRN PRN Reason: Pain, Mild (1-3) Acetaminophen (Tylenol 325mg Tab) 650 mg PO Q6 PRN PRN Reason: Fever >100.4 F Last Admin: 07/21/18 19:58 Dose: 650 mg Albuterol (Ventolin Hfa 90 Mcg/Actuation (8 G)) 2 puff IH TID PRN PRN Reason: Shortness of Breath Albuterol/Ipratropium (Duoneb 3 Mg/0.5 Mg (3 Ml) Ud) 3 ml INH RQ6 PRN PRN Reason: Shortness of Breath Last Admin: 07/20/18 19:08 Dose: 3 ml Apixaban (Eliquis) 10 mg PO BID [facility]; Protocol Last Admin: 07/22/18 08:20 Dose: 10 mg Docusate Sodium (Colace) 100 mg PO BID [facility] Last Admin: 07/22/18 08:20 Dose: 100 mg Ergocalciferol (Drisdol 50,000 Intl Units Cap) 1 cap PO QWK [facility] Hydromorphone HCl (Dilaudid) 2 mg PO Q6 PRN PRN Reason: Pain, severe (8-10) Last Admin: 07/22/18 01:57 Dose: 2 mg Aztreonam 1 gm/ Sodium (Chloride) 100 mls @ 100 mls/hr IVPB Q8 [facility]; Protocol Last Admin: 07/22/18 08:11 Dose: 100 mls/hr Vancomycin HCl 1,250 mg/ (Sodium Chloride) 250 mls @ 250 mls/hr IVPB Q12H [facility]; Protocol Last Admin: 07/21/18 23:04 Dose: 250 mls/hr Magnesium Hydroxide (Milk Of Magnesia) 30 ml PO HS PRN PRN Reason: Constipation Last Admin: 07/22/18 08:22 Dose: 30 ml Montelukast Sodium (Singulair) 10 mg PO DAILY [facility] Last Admin: 07/22/18 08:20 Dose: 10 mg Multivitamins/Minerals (Therapeutic-M Tab) 1 tab PO DAILY [facility] Last Admin: 07/22/18 08:20 Dose: 1 tab Oxycodone HCl (Oxycodone Immediate Release Tab) 10 mg PO Q4H PRN PRN Reason: Pain, moderate (4-7) Last Admin: 07/22/18 08:19 Dose: 10 mg Pantoprazole Sodium (Protonix Ec Tab) 40 mg PO DAILY [facility] Last Admin: 07/22/18 08:20 Dose: 40 mg Pregabalin (Lyrica) 50 mg PO BID [facility] Last Admin: 07/22/18 08:19 Dose: 50 mg Fluticasone/Salmeterol (Advair Diskus 100/50) 1 puff INH Q12 [facility] Last Admin: 07/21/18 21:28 Dose: 1 puff - Labs Labs: 07/22/18 05:25 07/22/18 05:25
--- NOTE | 2018-07-22 20:43 | CP.PCM.CON ---
History of Present Illness - History of Present Illness History of Present Illness: 63 year old friendly male with status post left TKR admitted TO TCU WITH PMH of osteoarthritis, HTn, asthma, Left popliteal DVt, now admitted for rehab. Review of Systems - Musculoskeletal Musculoskeletal: Limited Range of Motion, Muscle Weakness Past Patient History - Past Medical History & Family History Past Medical History?: Yes - Past Social History Smoking Status: Never Smoked - CARDIAC Hx Cardiac Disorders: Yes Hx Angina: Yes - PULMONARY Hx Respiratory Disorders: Yes Hx Asthma: Yes Hx Chronic Obstructive Pulmonary Disease (COPD): Yes - NEUROLOGICAL Hx Neurological Disorder: Yes Hx Dizziness: Yes (sometimes ) - HEENT Hx HEENT Problems: Yes (deviated septum repair) - RENAL Hx Chronic Kidney Disease: No - ENDOCRINE/METABOLIC Hx Endocrine Disorders: No - HEMATOLOGICAL/ONCOLOGICAL Hx Blood Disorders: Yes Hx Shingles: Yes - INTEGUMENTARY Hx Dermatological Problems: No - MUSCULOSKELETAL/RHEUMATOLOGICAL Hx Degenerative Joint Disease: Yes Hx Falls: No Hx Osteoarthritis: Yes - GASTROINTESTINAL Hx Gastrointestinal Disorders: No - GENITOURINARY/GYNECOLOGICAL Hx Urinary Tract Infection: Yes - PSYCHIATRIC Hx Substance Use: No - SURGICAL HISTORY Hx Surgeries: Yes Hx Arthroscopy: Yes (left shoulder torn rotator cuff repair) Hx Herniorrhaphy: Yes (ventral) Hx Joint Replacement: Yes Other/Comment: deviated septal repair - ANESTHESIA Hx Anesthesia: Yes Hx Anesthesia Reactions: No Hx Malignant Hyperthermia: No Meds Allergies/Adverse Reactions: Allergies Allergy/AdvReac Type Severity Reaction Status Date / Time Penicillins Allergy Intermediate RASH Verified 07/20/18 16:33 shellfish derived Allergy Intermediate RASH Verified 07/20/18 16:33 shrimp Allergy Intermediate RASH Verified 07/20/18 16:33 - Medications Medications: Current Medications Acetaminophen (Tylenol 325mg Tab) 650 mg PO Q6 PRN PRN Reason: Pain, Mild (1-3) Acetaminophen (Tylenol 325mg Tab) 650 mg PO Q6 PRN PRN Reason: Fever >100.4 F Last Admin: 07/21/18 19:58 Dose: 650 mg Albuterol (Ventolin Hfa 90 Mcg/Actuation (8 G)) 2 puff IH TID PRN PRN Reason: Shortness of Breath Albuterol/Ipratropium (Duoneb 3 Mg/0.5 Mg (3 Ml) Ud) 3 ml INH RQ6 PRN PRN Reason: Shortness of Breath Last Admin: 07/20/18 19:08 Dose: 3 ml Apixaban (Eliquis) 10 mg PO BID [facility]; Protocol Last Admin: 07/22/18 17:48 Dose: 10 mg Docusate Sodium (Colace) 100 mg PO BID [facility] Last Admin: 07/22/18 17:33 Dose: 100 mg Ergocalciferol (Drisdol 50,000 Intl Units Cap) 1 cap PO QWK [facility] Hydromorphone HCl (Dilaudid) 2 mg PO Q6 PRN PRN Reason: Pain, severe (8-10) Last Admin: 07/22/18 01:57 Dose: 2 mg Aztreonam 1 gm/ Sodium (Chloride) 100 mls @ 100 mls/hr IVPB Q8 [facility]; Protocol Last Admin: 07/22/18 17:32 Dose: 100 mls/hr Vancomycin HCl 1,250 mg/ (Sodium Chloride) 250 mls @ 250 mls/hr IVPB Q12H [facility]; Protocol Last Admin: 07/22/18 12:40 Dose: 250 mls/hr Magnesium Hydroxide (Milk Of Magnesia) 30 ml PO HS PRN PRN Reason: Constipation Last Admin: 07/22/18 08:22 Dose: 30 ml Montelukast Sodium (Singulair) 10 mg PO DAILY [facility] Last Admin: 07/22/18 08:20 Dose: 10 mg Multivitamins/Minerals (Therapeutic-M Tab) 1 tab PO DAILY [facility] Last Admin: 07/22/18 08:20 Dose: 1 tab Oxycodone HCl (Oxycodone Immediate Release Tab) 10 mg PO Q4H PRN PRN Reason: Pain, moderate (4-7) Last Admin: 07/22/18 17:31 Dose: 10 mg Pantoprazole Sodium (Protonix Ec Tab) 40 mg PO DAILY [facility] Last Admin: 07/22/18 08:20 Dose: 40 mg Pregabalin (Lyrica) 50 mg PO BID [facility] Last Admin: 07/22/18 17:38 Dose: 50 mg Fluticasone/Salmeterol (Advair Diskus 100/50) 1 puff INH Q12 [facility] Last Admin: 07/22/18 09:00 Dose: 1 puff Physical Exam - Constitutional Appears: Well - Head Exam Head Exam: ATRAUMATIC, NORMAL INSPECTION, NORMOCEPHALIC - Eye Exam Eye Exam: EOMI, Normal appearance Pupil Exam: NORMAL ACCOMODATION, PERRL - ENT Exam ENT Exam: Mucous Membranes Moist, Normal Exam - Neck Exam Neck exam: Positive for: Normal Inspection - Respiratory Exam Respiratory Exam: Clear to Auscultation Bilateral, NORMAL BREATHING PATTERN - Cardiovascular Exam Cardiovascular Exam: REGULAR RHYTHM - GI/Abdominal Exam GI & Abdominal Exam: Normal Bowel Sounds - Rectal Exam Rectal Exam: NORMAL INSPECTION - Exam External exam: NORMAL EXTERNAL EXAM - Extremities Exam Extremities exam: Positive for: normal inspection - Back Exam Back exam: NORMAL INSPECTION - Neurological Exam Neurological exam: Alert, CN II-XII Intact Additional comments: left leg with bulky dressing - Psychiatric Exam Psychiatric exam: Normal Affect - Skin Skin Exam: Dry, Normal Color Results - Vital Signs Recent Vital Signs: Last Vital Signs Temp 99.2 F 07/22/18 17:16 Pulse 102 H 07/22/18 17:16 Resp 20 07/22/18 17:16 BP 125/83 07/22/18 17:16 Pulse Ox 100 07/22/18 17:16 - Labs Result Diagrams: 07/22/18 05:25 07/22/18 05:25 Labs: Laboratory Results - last 24 hr 07/21/18 07/21/18 07/22/18 15:50 15:50 05:25 WBC 11.8 H RBC 3.77 L Hgb 10.1 L Hct 32.1 L MCV 85.0 MCH 26.8 L MCHC 31.5 L RDW 13.4 Plt Count 447 H MPV 7.6 Neut % (Auto) 67.7 Lymph % (Auto) 16.0 L [place] % (Auto) 11.7 H Eos % (Auto) 3.7 Baso % (Auto) 0.9 Neut # (Auto) 8.0 H Lymph # (Auto) 1.9 [place] # (Auto) 1.4 H Eos # (Auto) 0.4 Baso # (Auto) 0.1 Sodium Potassium Chloride Carbon Dioxide Anion Gap BUN Creatinine Est GFR ( Amer) Est GFR (Non-Af Amer) Random Glucose Calcium Total Bilirubin AST ALT Alkaline Phosphatase Total Protein Albumin Globulin Albumin/Globulin Ratio Procalcitonin Hepatitis A IgM Ab Negative Hep Bs Antigen Negative Hep B Core IgM Ab Negative Hepatitis C Antibody Negative HIV 1&2 Antibody Screen Negative 07/22/18 07/22/18 05:25 06:03 WBC RBC Hgb Hct MCV MCH MCHC RDW Plt Count MPV Neut % (Auto) Lymph % (Auto) [place] % (Auto) Eos % (Auto) Baso % (Auto) Neut # (Auto) Lymph # (Auto) [place] # (Auto) Eos # (Auto) Baso # (Auto) Sodium 134 Potassium 4.5 Chloride 98 Carbon Dioxide 29 Anion Gap 12 BUN 15 Creatinine 0.8 Est GFR ( Amer) > 60 Est GFR (Non-Af Amer) > 60 Random Glucose 118 H Calcium 8.8 Total Bilirubin 1.0 AST 82 H ALT 94 H Alkaline Phosphatase 178 H Total Protein 7.7 Albumin 3.6 Globulin 4.1 H Albumin/Globulin Ratio 0.9 L Procalcitonin 0.22 Hepatitis A IgM Ab Hep Bs Antigen Hep B Core IgM Ab Hepatitis C Antibody HIV 1&2 Antibody Screen Assessment & Plan (1) Asthma Status: Acute (2) DVT (deep venous thrombosis) Status: Acute (3) HTN (hypertension) Status: Acute (4) Postoperative fever Status: Acute (5) Primary osteoarthritis of left knee Status: Acute (6) Status post left knee replacement Assessment and Plan: plan for range of motion, strengthening, transfers and gait training, physical, occupationla therapy. WBAT precations. monitor skin and dressing. Thank you for the rehab referral. Status: Acute
--- NOTE | 2018-07-22 20:49 | CP.PCM.PN ---
Subjective - Date & Time of Evaluation Date of Evaluation: 07/22/18 Time of Evaluation: 14:00 - Subjective Subjective: patient with no acute complaints of any pain in the left leg, status post increased in temp, Objective - Vital Signs/Intake and Output Vital Signs (last 24 hours): Temp Pulse Resp BP Pulse Ox 99.2 F 102 H 20 125/83 100 07/22/18 17:16 07/22/18 17:16 07/22/18 17:16 07/22/18 17:16 07/22/18 17:16 - Medications Medications: Current Medications Acetaminophen (Tylenol 325mg Tab) 650 mg PO Q6 PRN PRN Reason: Pain, Mild (1-3) Acetaminophen (Tylenol 325mg Tab) 650 mg PO Q6 PRN PRN Reason: Fever >100.4 F Last Admin: 07/21/18 19:58 Dose: 650 mg Albuterol (Ventolin Hfa 90 Mcg/Actuation (8 G)) 2 puff IH TID PRN PRN Reason: Shortness of Breath Albuterol/Ipratropium (Duoneb 3 Mg/0.5 Mg (3 Ml) Ud) 3 ml INH RQ6 PRN PRN Reason: Shortness of Breath Last Admin: 07/20/18 19:08 Dose: 3 ml Apixaban (Eliquis) 10 mg PO BID [facility]; Protocol Last Admin: 07/22/18 17:48 Dose: 10 mg Docusate Sodium (Colace) 100 mg PO BID [facility] Last Admin: 07/22/18 17:33 Dose: 100 mg Ergocalciferol (Drisdol 50,000 Intl Units Cap) 1 cap PO QWK [facility] Hydromorphone HCl (Dilaudid) 2 mg PO Q6 PRN PRN Reason: Pain, severe (8-10) Last Admin: 07/22/18 01:57 Dose: 2 mg Aztreonam 1 gm/ Sodium (Chloride) 100 mls @ 100 mls/hr IVPB Q8 [facility]; Protocol Last Admin: 07/22/18 17:32 Dose: 100 mls/hr Vancomycin HCl 1,250 mg/ (Sodium Chloride) 250 mls @ 250 mls/hr IVPB Q12H [facility]; Protocol Last Admin: 07/22/18 12:40 Dose: 250 mls/hr Magnesium Hydroxide (Milk Of Magnesia) 30 ml PO HS PRN PRN Reason: Constipation Last Admin: 07/22/18 08:22 Dose: 30 ml Montelukast Sodium (Singulair) 10 mg PO DAILY [facility] Last Admin: 07/22/18 08:20 Dose: 10 mg Multivitamins/Minerals (Therapeutic-M Tab) 1 tab PO DAILY [facility] Last Admin: 07/22/18 08:20 Dose: 1 tab Oxycodone HCl (Oxycodone Immediate Release Tab) 10 mg PO Q4H PRN PRN Reason: Pain, moderate (4-7) Last Admin: 07/22/18 17:31 Dose: 10 mg Pantoprazole Sodium (Protonix Ec Tab) 40 mg PO DAILY [facility] Last Admin: 07/22/18 08:20 Dose: 40 mg Pregabalin (Lyrica) 50 mg PO BID [facility] Last Admin: 07/22/18 17:38 Dose: 50 mg Fluticasone/Salmeterol (Advair Diskus 100/50) 1 puff INH Q12 [facility] Last Admin: 07/22/18 09:00 Dose: 1 puff - Labs Labs: 07/22/18 05:25 07/22/18 05:25 - Constitutional Appears: Well - Head Exam Head Exam: ATRAUMATIC, NORMAL INSPECTION, NORMOCEPHALIC - Eye Exam Eye Exam: EOMI, Normal appearance Pupil Exam: NORMAL ACCOMODATION, PERRL - ENT Exam ENT Exam: Mucous Membranes Moist, Normal Exam - Neck Exam Neck Exam: Full ROM - Respiratory Exam Respiratory Exam: Clear to Ausculation Bilateral, NORMAL BREATHING PATTERN - Cardiovascular Exam Cardiovascular Exam: REGULAR RHYTHM - GI/Abdominal Exam GI & Abdominal Exam: Soft, Normal Bowel Sounds - Rectal Exam Rectal Exam: NORMAL INSPECTION - Exam External exam: NORMAL EXTERNAL EXAM - Extremities Exam Extremities Exam: Normal Capillary Refill Additional comments: left leg healing with the dressing. - Back Exam Back Exam: NORMAL INSPECTION - Neurological Exam Neurological Exam: Alert, Awake Neuro motor strength exam: Left Upper Extremity: 4, Right Upper Extremity: 4, Left Lower Extremity: 3, Right Lower Extremity: 4 - Psychiatric Exam Psychiatric exam: Normal Affect, Normal Mood Assessment and Plan (1) Asthma Status: Acute (2) DVT (deep venous thrombosis) Status: Acute (3) HTN (hypertension) Status: Acute (4) Postoperative fever Status: Acute (5) Primary osteoarthritis of left knee Status: Acute (6) Status post left knee replacement Assessment & Plan: plan to continue with physical, occupational therapy. Equipment evaluation. Monitor temp ( I.D. on consult), and monitor pain. Status: Acute
--- NOTE | 2018-07-22 22:58 | CP.PCM.HP ---
History of Present Illness - History of Present Illness History of Present Illness: CC: S/P Left TKR, and spike of Fever History of Present Illness A 63-year-old male with history of Osteoarthritis status post knee replacement at [facility], and hospital course complicated with left popliteal DVT on Eliquis. VQ scan Low probability for pulmonary embolism, asthma/obstructive sleep apnea, & Hypertrension was transferred to [facility] for IV Antibiotics, and PT/OT. At triage, patient spiked Fever 102.4degree F, and Septic Work up requested, and Azactam added to IV Vancomycin. Patient denies urinary complaint, shortness of Breath, cough, fever, diarrhea, Rashes or chest pain. Present on Admission - Present on Admission Any Indicators Present on Admission: No Review of Systems - Review of Systems All systems: reviewed and no additional remarkable complaints except Review of Systems: As per HPI Past Patient History - Past Medical History & Family History Past Medical History?: Yes Past Family History: Reviewed and not pertinent - Past Social History Smoking Status: Never Smoked Alcohol: None Drugs: Denies - CARDIAC Hx Cardiac Disorders: Yes Hx Angina: Yes - PULMONARY Hx Respiratory Disorders: Yes Hx Asthma: Yes Hx Chronic Obstructive Pulmonary Disease (COPD): Yes - NEUROLOGICAL Hx Neurological Disorder: Yes Hx Dizziness: Yes (sometimes ) - HEENT Hx HEENT Problems: Yes (deviated septum repair) - RENAL Hx Chronic Kidney Disease: No - ENDOCRINE/METABOLIC Hx Endocrine Disorders: No - HEMATOLOGICAL/ONCOLOGICAL Hx Blood Disorders: Yes Hx Shingles: Yes - INTEGUMENTARY Hx Dermatological Problems: No - MUSCULOSKELETAL/RHEUMATOLOGICAL Hx Degenerative Joint Disease: Yes Hx Falls: No Hx Osteoarthritis: Yes - GASTROINTESTINAL Hx Gastrointestinal Disorders: No - GENITOURINARY/GYNECOLOGICAL Hx Urinary Tract Infection: Yes - PSYCHIATRIC Hx Substance Use: No - SURGICAL HISTORY Hx Surgeries: Yes Hx Arthroscopy: Yes (left shoulder torn rotator cuff repair) Hx Herniorrhaphy: Yes (ventral) Hx Joint Replacement: Yes Other/Comment: deviated septal repair - ANESTHESIA Hx Anesthesia: Yes Hx Anesthesia Reactions: No Hx Malignant Hyperthermia: No Meds Allergies/Adverse Reactions: Allergies Allergy/AdvReac Type Severity Reaction Status Date / Time Penicillins Allergy Intermediate RASH Verified 07/20/18 16:33 shellfish derived Allergy Intermediate RASH Verified 07/20/18 16:33 shrimp Allergy Intermediate RASH Verified 07/20/18 16:33 Physical Exam - Constitutional Appears: Well, No Acute Distress - Head Exam Head Exam: ATRAUMATIC, NORMAL INSPECTION, NORMOCEPHALIC - Eye Exam Eye Exam: EOMI, Normal appearance, PERRL Pupil Exam: NORMAL ACCOMODATION, PERRL - ENT Exam ENT Exam: Mucous Membranes Moist, Normal Exam - Neck Exam Neck exam: Positive for: Full Rom, Normal Inspection. Negative for: Lymphadenopathy - Respiratory Exam Respiratory Exam: Clear to Auscultation Bilateral, NORMAL BREATHING PATTERN - Cardiovascular Exam Cardiovascular Exam: REGULAR RHYTHM, +S1, +S2 - GI/Abdominal Exam GI & Abdominal Exam: Normal Bowel Sounds, Soft. absent: Tenderness - Extremities Exam Additional comments: Left knee splinted with clean splint, and Limitted range of movement. Unable to Flex at the left knee. - Back Exam Back exam: NORMAL INSPECTION - Neurological Exam Neurological exam: Alert, CN II-XII Intact, Normal Gait, Oriented x3, Reflexes Normal - Psychiatric Exam Psychiatric exam: Normal Affect, Normal Mood - Skin Skin Exam: Dry, Intact, Normal Color, Warm Results - Vital Signs Recent Vital Signs: Last Vital Signs Temp 99.7 F H 07/22/18 21:41 Pulse 109 H 07/22/18 21:41 Resp 20 07/22/18 21:41 BP 110/68 07/22/18 21:41 Pulse Ox 96 07/22/18 21:41 - Labs Result Diagrams: 07/23/18 03:39 07/23/18 03:39 Labs: Laboratory Results - last 24 hr 07/22/18 07/22/18 07/22/18 05:25 05:25 06:03 WBC 11.8 H RBC 3.77 L Hgb 10.1 L Hct 32.1 L MCV 85.0 MCH 26.8 L MCHC 31.5 L RDW 13.4 Plt Count 447 H MPV 7.6 Neut % (Auto) 67.7 Lymph % (Auto) 16.0 L Sharkey % (Auto) 11.7 H Eos % (Auto) 3.7 Baso % (Auto) 0.9 Neut # (Auto) 8.0 H Lymph # (Auto) 1.9 Sharkey # (Auto) 1.4 H Eos # (Auto) 0.4 Baso # (Auto) 0.1 Sodium 134 Potassium 4.5 Chloride 98 Carbon Dioxide 29 Anion Gap 12 BUN 15 Creatinine 0.8 Est GFR ( Amer) > 60 Est GFR (Non-Af Amer) > 60 Random Glucose 118 H Calcium 8.8 Total Bilirubin 1.0 AST 82 H ALT 94 H Alkaline Phosphatase 178 H Total Protein 7.7 Albumin 3.6 Globulin 4.1 H Albumin/Globulin Ratio 0.9 L Procalcitonin 0.22 Assessment & Plan (1) Postoperative fever Assessment and Plan: Fever: DVT / Hemarthrosis / Post Procedural Monitor Septic Arthritis IV Azactam/Vancomycin Pain Medication PRN Follow Septic Work ID and Physiatry Consulted Status: Acute Priority: High (2) Status post left knee replacement Assessment and Plan: Wound Care PT/OT Status: Acute Priority: Medium (3) DVT (deep venous thrombosis) Assessment and Plan: Continue Eliquis Status: Acute Priority: High (4) HTN (hypertension) Status: Acute Priority: Low
--- NOTE | 2018-07-22 22:59 | CP.PCM.PN ---
Subjective - Date & Time of Evaluation Date of Evaluation: 07/21/18 Time of Evaluation: 22:15 Objective - Vital Signs/Intake and Output Vital Signs (last 24 hours): Temp Pulse Resp BP Pulse Ox 99.7 F H 109 H 20 110/68 96 07/22/18 21:41 07/22/18 21:41 07/22/18 21:41 07/22/18 21:41 07/22/18 21:41 - Medications Medications: Current Medications Acetaminophen (Tylenol 325mg Tab) 650 mg PO Q6 PRN PRN Reason: Pain, Mild (1-3) Acetaminophen (Tylenol 325mg Tab) 650 mg PO Q6 PRN PRN Reason: Fever >100.4 F Last Admin: 07/21/18 19:58 Dose: 650 mg Albuterol (Ventolin Hfa 90 Mcg/Actuation (8 G)) 2 puff IH TID PRN PRN Reason: Shortness of Breath Albuterol/Ipratropium (Duoneb 3 Mg/0.5 Mg (3 Ml) Ud) 3 ml INH RQ6 PRN PRN Reason: Shortness of Breath Last Admin: 07/20/18 19:08 Dose: 3 ml Apixaban (Eliquis) 10 mg PO BID [facility]; Protocol Last Admin: 07/22/18 17:48 Dose: 10 mg Docusate Sodium (Colace) 100 mg PO BID [facility] Last Admin: 07/22/18 17:33 Dose: 100 mg Ergocalciferol (Drisdol 50,000 Intl Units Cap) 1 cap PO QWK [facility] Hydromorphone HCl (Dilaudid) 2 mg PO Q6 PRN PRN Reason: Pain, severe (8-10) Last Admin: 07/22/18 01:57 Dose: 2 mg Aztreonam 1 gm/ Sodium (Chloride) 100 mls @ 100 mls/hr IVPB Q8 [facility]; Protocol Last Admin: 07/22/18 17:32 Dose: 100 mls/hr Vancomycin HCl 1,250 mg/ (Sodium Chloride) 250 mls @ 250 mls/hr IVPB Q12H [facility]; Protocol Last Admin: 07/22/18 12:40 Dose: 250 mls/hr Magnesium Hydroxide (Milk Of Magnesia) 30 ml PO HS PRN PRN Reason: Constipation Last Admin: 07/22/18 08:22 Dose: 30 ml Montelukast Sodium (Singulair) 10 mg PO DAILY [facility] Last Admin: 07/22/18 08:20 Dose: 10 mg Multivitamins/Minerals (Therapeutic-M Tab) 1 tab PO DAILY [facility] Last Admin: 07/22/18 08:20 Dose: 1 tab Oxycodone HCl (Oxycodone Immediate Release Tab) 10 mg PO Q4H PRN PRN Reason: Pain, moderate (4-7) Last Admin: 07/22/18 17:31 Dose: 10 mg Pantoprazole Sodium (Protonix Ec Tab) 40 mg PO DAILY [facility] Last Admin: 07/22/18 08:20 Dose: 40 mg Pregabalin (Lyrica) 50 mg PO BID [facility] Last Admin: 07/22/18 17:38 Dose: 50 mg Fluticasone/Salmeterol (Advair Diskus 100/50) 1 puff INH Q12 [facility] Last Admin: 07/22/18 21:18 Dose: 1 puff - Labs Labs: 07/22/18 05:25 07/22/18 05:25
--- NOTE | 2018-07-22 23:00 | CP.PCM.PN ---
Subjective - Date & Time of Evaluation Date of Evaluation: 07/22/18 Time of Evaluation: 20:40 Objective - Vital Signs/Intake and Output Vital Signs (last 24 hours): Temp Pulse Resp BP Pulse Ox 99.7 F H 109 H 20 110/68 96 07/22/18 21:41 07/22/18 21:41 07/22/18 21:41 07/22/18 21:41 07/22/18 21:41 - Medications Medications: Current Medications Acetaminophen (Tylenol 325mg Tab) 650 mg PO Q6 PRN PRN Reason: Pain, Mild (1-3) Acetaminophen (Tylenol 325mg Tab) 650 mg PO Q6 PRN PRN Reason: Fever >100.4 F Last Admin: 07/21/18 19:58 Dose: 650 mg Albuterol (Ventolin Hfa 90 Mcg/Actuation (8 G)) 2 puff IH TID PRN PRN Reason: Shortness of Breath Albuterol/Ipratropium (Duoneb 3 Mg/0.5 Mg (3 Ml) Ud) 3 ml INH RQ6 PRN PRN Reason: Shortness of Breath Last Admin: 07/20/18 19:08 Dose: 3 ml Apixaban (Eliquis) 10 mg PO BID [facility]; Protocol Last Admin: 07/22/18 17:48 Dose: 10 mg Docusate Sodium (Colace) 100 mg PO BID [facility] Last Admin: 07/22/18 17:33 Dose: 100 mg Ergocalciferol (Drisdol 50,000 Intl Units Cap) 1 cap PO QWK [facility] Hydromorphone HCl (Dilaudid) 2 mg PO Q6 PRN PRN Reason: Pain, severe (8-10) Last Admin: 07/22/18 01:57 Dose: 2 mg Aztreonam 1 gm/ Sodium (Chloride) 100 mls @ 100 mls/hr IVPB Q8 [facility]; Protocol Last Admin: 07/22/18 17:32 Dose: 100 mls/hr Vancomycin HCl 1,250 mg/ (Sodium Chloride) 250 mls @ 250 mls/hr IVPB Q12H [facility]; Protocol Last Admin: 07/22/18 12:40 Dose: 250 mls/hr Magnesium Hydroxide (Milk Of Magnesia) 30 ml PO HS PRN PRN Reason: Constipation Last Admin: 07/22/18 08:22 Dose: 30 ml Montelukast Sodium (Singulair) 10 mg PO DAILY [facility] Last Admin: 07/22/18 08:20 Dose: 10 mg Multivitamins/Minerals (Therapeutic-M Tab) 1 tab PO DAILY [facility] Last Admin: 07/22/18 08:20 Dose: 1 tab Oxycodone HCl (Oxycodone Immediate Release Tab) 10 mg PO Q4H PRN PRN Reason: Pain, moderate (4-7) Last Admin: 07/22/18 17:31 Dose: 10 mg Pantoprazole Sodium (Protonix Ec Tab) 40 mg PO DAILY [facility] Last Admin: 07/22/18 08:20 Dose: 40 mg Pregabalin (Lyrica) 50 mg PO BID [facility] Last Admin: 07/22/18 17:38 Dose: 50 mg Fluticasone/Salmeterol (Advair Diskus 100/50) 1 puff INH Q12 [facility] Last Admin: 07/22/18 21:18 Dose: 1 puff - Labs Labs: 07/22/18 05:25 07/22/18 05:25
[2018-07-23 00:39] VITALS: O2SAT 98
[2018-07-23] MEDS: Aztreonam 1 GM in Sodium Chloride 0.9% 100 ML IVPB SCH (02:03)
[2018-07-23 03:43] LABS: BASO % 0.3 % (0.0-2.0); EOS # 0.4 K/uL (0.0-0.7); EOS % 3.4 % (0.0-4.0); HEMOGLOBIN 9.7 g/dL (12.0-18.0); LYMPH # 2.2 K/uL (1.0-4.3); LYMPH % 16.9 % (20.0-40.0); MEAN CORPUSCULAR HEMOGLOBIN 27.6 pg (27.0-31.0); MEAN CORPUSCULAR HGB CONC 32.1 g/dL (33.0-37.0); MEAN PLATELET VOLUME 7.4 fl (7.2-11.7); MONO # 1.4 K/uL (0.0-0.8); MONO % 10.9 % (0.0-10.0); NEUT % 68.5 % (50.0-75.0); NRBC % 0.2 % (0.0-0.0); RBC 3.52 Mil/uL (4.40-5.90); RED CELL DISTRIBUTION WIDTH 13.4 % (11.5-14.5); WHITE BLOOD COUNT 13.1 K/uL (4.8-10.8)
[2018-07-23 03:55] LABS: ALB/GLOB RATIO 0.9 (1.0-2.1); ALBUMIN 3.3 g/dL (3.5-5.0); ALT/SGPT 88 U/L (21-72); AST/SGOT 83 U/L (17-59); BLOOD UREA NITROGEN 16 mg/dl (9-20); CALCIUM 8.3 mg/dL (8.4-10.2); GFR NON-AFRICAN AMERICAN > 60
[2018-07-23 08:09] VITALS: BP 169/70; PULSE 69; RESP 18; TEMP 97.7
--- NOTE | 2018-07-23 09:45 | PCM.SURG1 ---
Surgeon's Initial Post Op Note - Surgeon's Notes Surgeon: Ruben Kahn MD Field Care Manager: Khadijah Saunders PA-C Type of Anesthesia: General Endo Anesthesia Administered By: Dr. Stubbs Pre-Operative Diagnosis: left knee hematoma Operative Findings: see full note Post-Operative Diagnosis: same Operation Performed: I&D of left knee hematoma s/p L TKA Specimen/Specimens Removed: left knee fluid Estimated Blood Loss: EBL {In ML}: 25 Blood Products Given: N/A Drains Used: Wound Vac Post-Op Condition: Fair Date of Surgery/Procedure: 07/23/18 Time of Surgery/Procedure: 09:45
[2018-07-23] MEDS ORDERED: HYDROmorphone 0.5 mg/0.5 ml ISec IVP PRN ×2 (09:46→10:20)
[2018-07-23] MEDS ORDERED: Lactated Ringer's 1,000 ML IV SCH (10:00)
--- NOTE | 2018-07-24 17:52 | CP.PCM.DIS ---
Provider - Provider Date of Admission: 07/20/18 17:45 Attending physician: Adrianna Steinberg MD Consults: 07/20/18 18:16 Case Management Referral Routine Comment: Physician Instructions: Reason For Exam: Reason for Referral: Discharge Planning 07/20/18 18:28 Physiatry Consult Routine Comment: Consulting Provider: Nacho Peterson Consulting Physician: Nacho Peterson Reason for Consult: s/p left tkr 07/20/18 19:06 Infectious Disease Consult Routine Comment: Consulting Provider: Rigo Conklin Consulting Physician: Rigo Conklin Reason for Consult: Fever 102.2, DVT, Left TKR 07/21/18 02:09 Pastoral Care Referral Routine Comment: Physician Instructions: Reason For Exam: advance directive information 07/21/18 10:35 Orthopedic Consult Routine Comment: Consulting Provider: Barry Kahn Consulting Physician: Barry Kahn Reason for Consult: follow up 07/21/18 16:39 Cardiology Consult Routine Comment: Consulting Provider: Lacy Horton Consulting Physician: Lacy Horton Reason for Consult: ? new cardiomegaly on CXR Time Spent in preparation of Discharge (in minutes): 25 Diagnosis - Discharge Diagnosis (1) Postoperative fever Status: Acute Priority: High (2) Status post left knee replacement Status: Acute Priority: Medium (3) DVT (deep venous thrombosis) Status: Acute Priority: High (4) HTN (hypertension) Status: Acute Priority: Low Hospital Course - Lab Results Lab Results: Micro Results 07/20/18 19:01 Blood Blood Culture - Preliminary NO GROWTH AFTER 3 DAYS 07/21/18 11:53 Urine,Clean Catch Urine Culture - Final No Growth (<1,000 CFU/ML) Most Recent Lab Values WBC 13.1 K/uL (4.8-10.8) H 07/23/18 03:39 RBC 3.52 Mil/uL (4.40-5.90) L 07/23/18 03:39 Hgb 9.7 g/dL (12.0-18.0) L 07/23/18 03:39 Hct 30.3 % (35.0-51.0) L 07/23/18 03:39 MCV 86.0 fl (80.0-94.0) 07/23/18 03:39 MCH 27.6 pg (27.0-31.0) 07/23/18 03:39 MCHC 32.1 g/dL (33.0-37.0) L 07/23/18 03:39 RDW 13.4 % (11.5-14.5) 07/23/18 03:39 Plt Count 441 K/uL (130-400) H 07/23/18 03:39 MPV 7.4 fl (7.2-11.7) 07/23/18 03:39 Neut % (Auto) 68.5 % (50.0-75.0) 07/23/18 03:39 Lymph % (Auto) 16.9 % (20.0-40.0) L 07/23/18 03:39 [place]royo % (Auto) 10.9 % (0.0-10.0) H 07/23/18 03:39 Eos % (Auto) 3.4 % (0.0-4.0) 07/23/18 03:39 Baso % (Auto) 0.3 % (0.0-2.0) 07/23/18 03:39 Neut # (Auto) 9.0 K/uL (1.8-7.0) H 07/23/18 03:39 Lymph # (Auto) 2.2 K/uL (1.0-4.3) 07/23/18 03:39 [place]o # (Auto) 1.4 K/uL (0.0-0.8) H 07/23/18 03:39 Eos # (Auto) 0.4 K/uL (0.0-0.7) 07/23/18 03:39 Baso # (Auto) 0.0 K/uL (0.0-0.2) 07/23/18 03:39 ESR 96 mm/hr (0-20) H 07/20/18 19:01 Sodium 132 mmol/l (132-148) 07/23/18 03:39 Potassium 4.6 MMOL/L (3.6-5.0) 07/23/18 03:39 Chloride 99 mmol/L (98-107) 07/23/18 03:39 Carbon Dioxide 30 mmol/L (22-30) 07/23/18 03:39 Anion Gap 8 (10-20) L 07/23/18 03:39 BUN 16 mg/dl (9-20) 07/23/18 03:39 Creatinine 0.8 mg/dl (0.8-1.5) 07/23/18 03:39 Est GFR ( Amer) > 60 07/23/18 03:39 Est GFR (Non-Af Amer) > 60 07/23/18 03:39 Random Glucose 116 mg/dL (75-110) H 07/23/18 03:39 Lactic Acid 0.8 MMOL/L (0.7-2.1) 07/21/18 11:46 Calcium 8.3 mg/dL (8.4-10.2) L 07/23/18 03:39 Phosphorus 3.6 mg/dl (2.5-4.5) 07/20/18 19:01 Magnesium 2.1 MG/DL (1.6-2.3) 07/20/18 19:01 Total Bilirubin 1.0 mg/dl (0.2-1.3) 07/23/18 03:39 AST 83 U/L (17-59) H 07/23/18 03:39 ALT 88 U/L (21-72) H 07/23/18 03:39 Alkaline Phosphatase 158 U/L (38-126) H 07/23/18 03:39 Total Protein 7.2 G/DL (6.3-8.2) 07/23/18 03:39 Albumin 3.3 g/dL (3.5-5.0) L 07/23/18 03:39 Globulin 3.9 gm/dL (2.2-3.9) 07/23/18 03:39 Albumin/Globulin Ratio 0.9 (1.0-2.1) L 07/23/18 03:39 Procalcitonin 0.22 NG/ML (0.19-0.49) 07/22/18 06:03 Urine Color Yellow (YELLOW) 07/21/18 11:53 Urine Clarity Turbid (Clear) 07/21/18 11:53 Urine pH 7.0 (5.0-8.0) 07/21/18 11:53 Ur Specific [place] 1.005 (1.003-1.030) 07/21/18 11:53 Urine Protein Negative mg/dL (NEGATIVE) 07/21/18 11:53 Urine Glucose (UA) Neg mg/dL (NEGATIVE) 07/21/18 11:53 Urine Ketones Negative mg/dL (NEGATIVE) 07/21/18 11:53 Urine Blood Negative (NEGATIVE) 07/21/18 11:53 Urine Nitrate Negative (NEGATIVE) 07/21/18 11:53 Urine Bilirubin Negative (NEGATIVE) 07/21/18 11:53 Urine Urobilinogen 0.2-1.0 mg/dL (0.2-1.0) 07/21/18 11:53 Ur Leukocyte Esterase Neg Deo/uL (Negative) 07/21/18 11:53 Urine RBC (Auto) 1 /hpf (0-3) 07/21/18 11:53 Urine Microscopic WBC 1 /hpf (0-5) 07/21/18 11:53 Ur Squamous Epith Cells < 1 /hpf (0-5) 07/21/18 11:53 Urine Bacteria Rare (<OCC) 07/20/18 22:10 Vancomycin Trough 8.5 ug/mL (5.0-10.0) 07/20/18 19:01 Hepatitis A IgM Ab Negative (NEGATIVE) 07/21/18 15:50 Hep Bs Antigen Negative (NEGATIVE) 07/21/18 15:50 Hep B Core IgM Ab Negative (NEGATIVE) 07/21/18 15:50 Hepatitis C Antibody Negative (NEGATIVE) 07/21/18 15:50 HIV 1&2 Antibody Screen Negative (NEGATIVE) 07/21/18 15:50 Discharge Exam - Head Exam Head Exam: ATRAUMATIC, NORMAL INSPECTION, NORMOCEPHALIC Discharge Plan - Follow Up Plan Condition: GOOD Disposition: Trans to Other Acute Care Hosp
== END 2018-07-23 10:45 | disposition short-term general hospital (02) | DRG 864 ==
LOC: H.TCU 07-20 17:45
PROVIDERS: ADMIT Internal Medicine; ATTEND Internal Medicine
PROC: 3E04329 Introduction of Other Anti-infective into Central Vein, Percutaneous Approach (ICD-10-PCS; principal; 2018-07-21)
PROC: F07Z9FZ Gait Training/Functional Ambulation Treatment using Assistive, Adaptive, Supportive or Protective Equipment (ICD-10-PCS; 2018-07-21)
PROC: F07M6FZ Therapeutic Exercise Treatment of Musculoskeletal System - Whole Body using Assistive, Adaptive, Supportive or Protective Equipment (ICD-10-PCS; 2018-07-21)
PROC: F08Z4FZ Home Management Treatment using Assistive, Adaptive, Supportive or Protective Equipment (ICD-10-PCS; 2018-07-21)
DX: R50.82 Postprocedural fever (principal); I82.432 Acute embolism and thrombosis of left popliteal vein; M00.9 Pyogenic arthritis, unspecified; M25.062 Hemarthrosis, left knee; D62 Acute posthemorrhagic anemia; L76.32 Postprocedural hematoma of skin and subcutaneous tissue following other procedure; Z47.1 Aftercare following joint replacement surgery; Z96.652 Presence of left artificial knee joint; B02.9 Zoster without complications; I20.9 Angina pectoris, unspecified; S80.02XD Contusion of left knee, subsequent encounter; X58.XXXD Exposure to other specified factors, subsequent encounter; J34.2 Deviated nasal septum; M19.90 Unspecified osteoarthritis, unspecified site; Z82.3 Family history of stroke; J44.9 Chronic obstructive pulmonary disease, unspecified; M17.12 Unilateral primary osteoarthritis, left knee; Z79.01 Long term (current) use of anticoagulants; Z87.440 Personal history of urinary (tract) infections; J45.909 Unspecified asthma, uncomplicated; G47.33 Obstructive sleep apnea (adult) (pediatric); I10 Essential (primary) hypertension; Y83.9 Surgical procedure, unspecified as the cause of abnormal reaction of the patient, or of later complication, without mention of misadventure at the time of the procedure; Y92.239 Unspecified place in hospital as the place of occurrence of the external cause

== ENCOUNTER 2018-07-27 14:45 | Inpatient (IN) | payer BC ==
[~2018-07-27 14:45] MED LIST: Fluticasone-Salmeterol 100-50mcg Diskus INH SCH
[2018-07-27] MEDS ORDERED: oxyCODONE 10 mg Immediate Release Tab PO PRN (17:57)
[2018-07-27] MEDS ORDERED: Albuterol-Ipratrop 3 mg / 0.5 (3 ml) UD INH PRN (17:57)
[2018-07-27] MEDS ORDERED: Magnesium Hydroxide Susp 30 ml UD PO PRN ×2 (17:57→18:46)
[2018-07-27] MEDS ORDERED: Ergocalciferol 50,000 Intl Units Cap PO SCH ×2 (18:00→19:00)
[2018-07-27] MEDS ORDERED: Vancomycin 1 g Inj IVPB SCH (18:00)
[2018-07-27] MEDS ORDERED: Albuterol HFA 90 mcg/actuation (8 g) IH PRN (18:19)
[2018-07-27] MEDS ORDERED: Docusate-Senna 50 mg-8.6 mg Tab PO PRN (18:36)
[2018-07-27 19:48] VITALS: RESP 20
[2018-07-27] MEDS: Albuterol-Ipratrop 3 mg / 0.5 (3 ml) UD INH SCH (20:10)
[2018-07-27] MEDS: oxyCODONE 10 mg Immediate Release Tab PO PRN (21:29)
[2018-07-28] MEDS: oxyCODONE 10 mg Immediate Release Tab PO PRN ×4 (03:06→23:13)
[2018-07-28] MEDS: Albuterol-Ipratrop 3 mg / 0.5 (3 ml) UD INH SCH ×4 (03:14→19:31)
[2018-07-28] MEDS: Fluticasone-Salmeterol 100-50mcg Diskus INH SCH ×2 (05:47→17:17)
[2018-07-28] MEDS: Multivitamin With Minerals Tab PO SCH (08:46)
[2018-07-28] MEDS: Pantoprazole 40 mg EC Tab PO SCH (08:46)
[2018-07-28] MEDS ORDERED: Multivitamin With Minerals Tab PO SCH (09:00)
[2018-07-28] MEDS ORDERED: Pantoprazole 40 mg EC Tab PO SCH (09:00)
--- NOTE | 2018-07-28 13:40 | CP.PCM.CON ---
History of Present Illness - History of Present Illness History of Present Illness: 63 year old male with history of left total knee replacement, with history of I and D, with old history of rotater cuff injury, with CAD, deviated septum repair now for TCU Review of Systems - Musculoskeletal Musculoskeletal: Muscle Weakness Past Patient History - Infectious Disease Hx of Infectious Diseases: None - Past Medical History & Family History Past Medical History?: Yes - Past Social History Smoking Status: Never Smoked - CARDIAC Hx Cardiac Disorders: Yes (CAD) - PULMONARY Hx Respiratory Disorders: Yes Hx Asthma: Yes Hx Chronic Obstructive Pulmonary Disease (COPD): Yes - NEUROLOGICAL Hx Neurological Disorder: Yes Hx Dizziness: Yes (sometimes ) - HEENT Hx HEENT Problems: Yes (deviated septum repair) - RENAL Hx Chronic Kidney Disease: No - ENDOCRINE/METABOLIC Hx Endocrine Disorders: No - HEMATOLOGICAL/ONCOLOGICAL Hx Blood Disorders: Yes Hx Shingles: Yes - INTEGUMENTARY Hx Dermatological Problems: No - MUSCULOSKELETAL/RHEUMATOLOGICAL Hx Falls: No - GASTROINTESTINAL Hx Gastrointestinal Disorders: No - GENITOURINARY/GYNECOLOGICAL Hx Urinary Tract Infection: Yes - PSYCHIATRIC Hx Substance Use: No - SURGICAL HISTORY Hx Arthroscopy: Yes (left shoulder torn rotator cuff repair) Hx Joint Replacement: Yes Other/Comment: deviated septal repair - ANESTHESIA Hx Anesthesia: Yes Hx Anesthesia Reactions: No Hx Malignant Hyperthermia: No Meds Allergies/Adverse Reactions: Allergies Allergy/AdvReac Type Severity Reaction Status Date / Time Penicillins Allergy Intermediate RASH Verified 07/20/18 16:33 shellfish derived Allergy Intermediate RASH Verified 07/27/18 17:49 shrimp Allergy Intermediate RASH Verified 07/27/18 17:49 - Medications Medications: Current Medications Acetaminophen (Tylenol 325mg Tab) 650 mg PO Q6 PRN PRN Reason: Fever >100.4 F Albuterol (Ventolin Hfa 90 Mcg/Actuation (8 G)) 2 puff IH TID PRN PRN Reason: Shortness of Breath Albuterol/Ipratropium (Duoneb 3 Mg/0.5 Mg (3 Ml) Ud) 3 ml INH RQ6 [facility] Last Admin: 07/28/18 07:41 Dose: Not Given Apixaban (Eliquis) 5 mg PO BID [facility]; Protocol Last Admin: 07/28/18 08:46 Dose: 5 mg Docusate Sodium (Colace) 100 mg PO BID [facility] Last Admin: 07/28/18 08:45 Dose: 100 mg Ergocalciferol (Drisdol 50,000 Intl Units Cap) 1 cap PO Q7D [facility] Last Admin: 07/27/18 21:32 Dose: 1 cap Vancomycin HCl 1,500 mg/ (Sodium Chloride) 500 mls @ 250 mls/hr IVPB Q12@0500,1700 [facility]; Protocol Last Admin: 07/28/18 05:48 Dose: 250 mls/hr Magnesium Hydroxide (Milk Of Magnesia) 30 ml PO DAILY PRN PRN Reason: Constipation Montelukast Sodium (Singulair) 10 mg PO DAILY [facility] Last Admin: 07/28/18 08:46 Dose: 10 mg Multivitamins/Minerals (Therapeutic-M Tab) 1 tab PO DAILY [facility] Last Admin: 07/28/18 08:46 Dose: 1 tab Oxycodone HCl (Oxycodone Immediate Release Tab) 10 mg PO Q6 PRN PRN Reason: Pain, moderate (4-7) Last Admin: 07/28/18 09:07 Dose: 10 mg Pantoprazole Sodium (Protonix Ec Tab) 40 mg PO DAILY [facility] Last Admin: 07/28/18 08:46 Dose: 40 mg Pregabalin (Lyrica) 50 mg PO BID [facility] Last Admin: 07/28/18 08:49 Dose: 50 mg Fluticasone/Salmeterol (Advair Diskus 100/50) 1 puff INH Q12H [facility] Last Admin: 07/28/18 05:47 Dose: 1 puff Senna/Docusate Sodium (Senokot S 50 Mg-8.6 Mg) 2 tab PO HS PRN PRN Reason: Constipation Physical Exam - Constitutional Appears: Well - Head Exam Head Exam: ATRAUMATIC, NORMAL INSPECTION, NORMOCEPHALIC - ENT Exam ENT Exam: Mucous Membranes Moist, Normal Exam - Neck Exam Neck exam: Positive for: Normal Inspection - Respiratory Exam Respiratory Exam: NORMAL BREATHING PATTERN - Cardiovascular Exam Cardiovascular Exam: REGULAR RHYTHM - GI/Abdominal Exam GI & Abdominal Exam: Normal Bowel Sounds - Rectal Exam Rectal Exam: NORMAL INSPECTION - Exam External exam: NORMAL EXTERNAL EXAM - Extremities Exam Extremities exam: Positive for: normal inspection Additional comments: left leg weakness with limited range of motion in the knee - Back Exam Back exam: NORMAL INSPECTION - Neurological Exam Neurological exam: Alert, CN II-XII Intact - Psychiatric Exam Psychiatric exam: Normal Affect, Normal Mood - Skin Skin Exam: Dry, Intact, Normal Color Results - Vital Signs Recent Vital Signs: Last Vital Signs Temp 99.3 F 07/28/18 08:28 Pulse 75 07/28/18 08:28 Resp 20 07/28/18 08:28 BP 119/76 07/28/18 08:28 Pulse Ox 95 07/28/18 08:28 Assessment & Plan (1) Acute blood loss as cause of postoperative anemia Status: Acute (2) Anemia Status: Acute (3) Asthma Status: Acute (4) DVT (deep venous thrombosis) Status: Acute Priority: High (5) HTN (hypertension) Status: Acute Priority: Low (6) Leukocytosis Status: Acute (7) Postoperative fever Status: Acute Priority: High (8) Primary osteoarthritis of left knee Assessment and Plan: plan for physical, occupational, range of motion,strengthening, transfers and gait training. Monitor pain on oxycodone, incisional area healing well. Status: Acute
[2018-07-29] MEDS: Albuterol-Ipratrop 3 mg / 0.5 (3 ml) UD INH SCH ×4 (01:11→20:05)
[2018-07-29] MEDS: Fluticasone-Salmeterol 100-50mcg Diskus INH SCH ×2 (08:58→21:04)
[2018-07-29] MEDS: Multivitamin With Minerals Tab PO SCH (09:00)
[2018-07-29] MEDS: Pantoprazole 40 mg EC Tab PO SCH (09:00)
[2018-07-29 09:26] LABS: BASO % 0.2 % (0.0-2.0); EOS # 0.3 K/uL (0.0-0.7); EOS % 2.7 % (0.0-4.0); HEMOGLOBIN 10.9 g/dL (12.0-18.0); LYMPH # 2.2 K/uL (1.0-4.3); LYMPH % 21.8 % (20.0-40.0); MEAN CELL VOLUME 84.8 fl (80.0-94.0); MEAN CORPUSCULAR HEMOGLOBIN 27.4 pg (27.0-31.0); MEAN CORPUSCULAR HGB CONC 32.4 g/dL (33.0-37.0); MEAN PLATELET VOLUME 7.6 fl (7.2-11.7); NEUT # 6.7 K/uL (1.8-7.0); NEUT % 65.3 % (50.0-75.0); RBC 3.97 Mil/uL (4.40-5.90); RED CELL DISTRIBUTION WIDTH 13.8 % (11.5-14.5); WHITE BLOOD COUNT 10.3 K/uL (4.8-10.8)
[2018-07-29 09:33] LABS: BLOOD UREA NITROGEN 13 mg/dl (9-20); CALCIUM 9.1 mg/dL (8.4-10.2); GFR NON-AFRICAN AMERICAN > 60
--- NOTE | 2018-07-29 09:40 | CP.PCM.PN ---
Subjective - Date & Time of Evaluation Date of Evaluation: 07/29/18 Time of Evaluation: 09:00 - Subjective Subjective: Patient states pain is controlled in knee, he is having a little more pain in his ankle now that he is in TCU. Denies CP/SOB/dizziness. Objective - Vital Signs/Intake and Output Vital Signs (last 24 hours): Temp Pulse Resp BP Pulse Ox 98.4 F 87 20 105/69 95 07/29/18 08:30 07/29/18 08:30 07/29/18 08:30 07/29/18 08:30 07/29/18 08:30 - Medications Medications: Current Medications Acetaminophen (Tylenol 325mg Tab) 650 mg PO Q6 PRN PRN Reason: Fever >100.4 F Albuterol (Ventolin Hfa 90 Mcg/Actuation (8 G)) 2 puff IH TID PRN PRN Reason: Shortness of Breath Albuterol/Ipratropium (Duoneb 3 Mg/0.5 Mg (3 Ml) Ud) 3 ml INH RQ6 [facility] Last Admin: 07/29/18 07:48 Dose: Not Given Apixaban (Eliquis) 5 mg PO BID [facility]; Protocol Last Admin: 07/29/18 08:59 Dose: 5 mg Docusate Sodium (Colace) 100 mg PO BID [facility] Last Admin: 07/29/18 08:59 Dose: 100 mg Ergocalciferol (Drisdol 50,000 Intl Units Cap) 1 cap PO Q7D [facility] Last Admin: 07/27/18 21:32 Dose: 1 cap Vancomycin HCl 1,500 mg/ (Sodium Chloride) 500 mls @ 250 mls/hr IVPB Q12@0500,1700 [facility]; Protocol Last Admin: 07/29/18 04:37 Dose: 250 mls/hr Magnesium Hydroxide (Milk Of Magnesia) 30 ml PO DAILY PRN PRN Reason: Constipation Montelukast Sodium (Singulair) 10 mg PO DAILY [facility] Last Admin: 07/29/18 09:00 Dose: 10 mg Multivitamins/Minerals (Therapeutic-M Tab) 1 tab PO DAILY [facility] Last Admin: 07/29/18 09:00 Dose: 1 tab Oxycodone HCl (Oxycodone Immediate Release Tab) 10 mg PO Q6 PRN PRN Reason: Pain, moderate (4-7) Last Admin: 12/19/18 23:13 Dose: 10 mg Pantoprazole Sodium (Protonix Ec Tab) 40 mg PO DAILY [facility] Last Admin: 07/29/18 09:00 Dose: 40 mg Pregabalin (Lyrica) 50 mg PO BID [facility] Last Admin: 07/29/18 09:04 Dose: 50 mg Fluticasone/Salmeterol (Advair Diskus 100/50) 1 puff INH Q12H [facility] Last Admin: 07/29/18 08:58 Dose: 1 puff Senna/Docusate Sodium (Senokot S 50 Mg-8.6 Mg) 2 tab PO HS PRN PRN Reason: Constipation - Labs Labs: 07/29/18 09:18 07/29/18 09:18 - Extremities Exam Additional comments: Left knee: incision intact, ddry. No erythema, swelling to knee improving. noted peripheral swelling (improving overall, but more in ankle now, likely as patient is standing and walking more) but no erythema. +ROM ankle/toes, sensation intact, sutures removed from distal 2/3 of wound, not including the proximal part that was reopened 6 days ago. +DP/PT pulses Assessment and Plan (1) Status post left knee replacement Assessment & Plan: POD#16 s/p left TKR DVT patient POD#6 s/p I&D of knee, found to have hemarthrosis which was evacuation and irrigated and debrided cultures negative no evidence of deep sepsis at this time leukocytosis resolved presume fevers and leukocytosis were just secondary to DVT patient with Tmax 100 overnight after 48 hours of being afeb IS ordered d/w Dr. Kahn, as all cultures negative as well, will d/c antibiotics at this time labs in am Status: Acute (2) DVT (deep venous thrombosis) Status: Acute
[2018-07-29] MEDS: oxyCODONE 10 mg Immediate Release Tab PO PRN (09:51)
[2018-07-29] MEDS: oxyCODONE 20 mg ER Tab (oxyCONTIN) PO SCH ×2 (14:00→21:04)
[2018-07-29] MEDS: Oxycodone/Acetaminophen 5/325 mg Tab PO PRN (17:39)
--- NOTE | 2018-07-29 19:06 | CP.PCM.CON ---
History of Present Illness - History of Present Illness History of Present Illness: 63 year old male referred for ID eval s/p left TKR complicated by DVT at [facility] then transferred from [facility] to [place] for revision / evacuation of hemarthrosis Past medical history: Asthma, HTN osteoarthritis s/p left total knee replacement, found to have a left popliteal DVT. Past surgical history: Left TKR Family history: + stroke and blood clots Social history: Denies tobacco, alcohol, and illicit drug use Allergies: PCN, shellfish Review of Systems - Review of Systems All systems: reviewed and no additional remarkable complaints except - Constitutional Constitutional: absent: As Per HPI, Anorexia, Chills, Daytime Sleepiness, Excessive Sweating, Fatigue, Fever, Frequent Falls, Headache, Increased Appetite, Lethargy, Malaise, Night Sweats, Snoring, Sleep Apnea, Weight Gain, Weight Loss, Weakness, Other - EENT Eyes: absent: As Per HPI, Blind Spots, Blurred Vision, Change in Vision, Decreased Night Vision, Diplopia, Discharge, Dry Eye, Exophthalmos, Floaters, Irritation, Itchy Eyes, Loss of Peripheral Vision, Pain, Photophobia, Requires Corrective Lenses, Sees Flashes, Spots in Vision, Tunnel Vision, Other Visual Disturbances, Loss of Vision, Other Ears: absent: As Per HPI, Decreased Hearing, Ear Discharge, Ear Pain, Tinnitus, Abnormal Hearing, Disequilibrium, Dizziness, Other Nose/Mouth/Throat: absent: As Per HPI, Epistaxis, Nasal Congestion, Nasal Discharge, Nasal Obstruction, Nasal Trauma, Nose Pain, Post Nasal Drip, Sinus Pain, Sinus Pressure, Bleeding Gums, Change in Voice, Dental Pain, Dry Mouth, Dysphagia, Halitosis, Hoarsness, Lip Swelling, Mouth Lesions, Mouth Pain, Odynophagia, Sore Throat, Throat Swelling, Tongue Swelling, Facial Pain, Neck Pain, Neck Mass, Other - Cardiovascular Cardiovascular: absent: As Per HPI, Acrocyanosis, Chest Pain, Chest Pain at Rest, Chest Pain with Activity, Claudication, Diaphoresis, Dyspnea, Dyspnea on Exertion, Edema, Irregular Heart Rhythm, Pain Radiating to Arm/Neck/Jaw, Leg Edema, Leg Ulcers, Lightheadedness, Orthopnea, Palpitations, Paroxysmal Nocturnal Dyspnea, Pedal Edema, Radiating Pain, Rapid Heart Rate, Slow Heart Rate, Syncope, Other - Respiratory Respiratory: absent: As Per HPI, Cough, Dyspnea, Hemoptysis, Dyspnea on Exertion, Wheezing, Snoring, Stridor, Pain on Inspiration, Chest Congestion, Excessive Mucous Production, Change in Mucous Color, Pain with Coughing, Other - Gastrointestinal Gastrointestinal: absent: As Per HPI, Abdominal Pain, Belching, Bloating, Change in Bowel Habits, Change in Stool Character, Coffee Ground Emesis, Constipation, Cramping, Diarrhea, Dyspepsia, Dysphagia, Early Satiety, Excessive Flatus, Fecal Incontinence, Heartburn, Hematemesis, Hematochezia, Loose Stools, Melena, Nausea, Odynophagia, Temesmus, Vomiting, Other - Genitourinary Genitourinary: absent: As Per HPI, Change in Urinary Stream, Difficulty Urinating, Dysuria, Flank Pain, Hematuria, Pyuria, Nocturia, Urinary Incontinence, Urinary Frequency, Urinary Hesitance, Urinary Urgency, Voiding Freq/Small Amts, Freq UTI, Hx Renal/Bladder Calculi, Hx /Renal Surgery, B ladder Distension, Other - Musculoskeletal Musculoskeletal: As Per HPI - Integumentary Integumentary: As Per HPI - Neurological Neurological: absent: As Per HPI, Abnormal Gait, Abnormal Hearing, Abnormal Movements, Abnormal Speech, Behavioral Changes, Burning Sensations, Confusion, Convulsions, Disequilibrium, Dizziness, Numbness, Focal Weakness, Frequent Falls, Headaches, Lack of Coordination, Loss of Vision, Memory Loss, Paresthesias, Radicular Pain, Restless Legs, Sensory Deficit, Syncope, Tingling, Tremor, Vertigo, Weakness, Other Visual Disturbances, Other - Psychiatric Psychiatric: absent: As Per HPI, Abnormal Sleep Pattern, Anhedonia, Anxiety, Auditory Hallucinations, Behavioral Changes, Change in Appetite, Change in Libido, Confusion, Depression, Difficulty Concentrating, Hallucinations, Homicidal Ideation, Hopelessness, Irritability, Memory Loss, Mood Swings, Panic Attacks, Paranoia, Suicidal Ideation, Visual Hallucinations, Tactile Hallucinations, Other - Endocrine Endocrine: absent: As Per HPI, Change in Body Appearance, Change in Libido, Cold Intolorance, Deepening of Voice, Excessive Sweating, Fatigue, Flushing, Heat Intolorance, Increase in Ring/Shoe/Hat Size, Palpitations, Polydipsia, Polyphagia, Polyuria, Other - Hematologic/Lymphatic Hematologic: absent: As Per HPI, Easy Bleeding, Easy Bruising, Lymphadenopathy, Other Past Patient History - Infectious Disease Hx of Infectious Diseases: None - Past Medical History & Family History Past Medical History?: Yes - Past Social History Smoking Status: Never Smoked - CARDIAC Hx Cardiac Disorders: Yes (CAD) - PULMONARY Hx Respiratory Disorders: Yes Hx Asthma: Yes Hx Chronic Obstructive Pulmonary Disease (COPD): Yes - NEUROLOGICAL Hx Neurological Disorder: Yes Hx Dizziness: Yes (sometimes ) - HEENT Hx HEENT Problems: Yes (deviated septum repair) - RENAL Hx Chronic Kidney Disease: No - ENDOCRINE/METABOLIC Hx Endocrine Disorders: No - HEMATOLOGICAL/ONCOLOGICAL Hx Blood Disorders: Yes Hx Shingles: Yes - INTEGUMENTARY Hx Dermatological Problems: No - MUSCULOSKELETAL/RHEUMATOLOGICAL Hx Falls: No - GASTROINTESTINAL Hx Gastrointestinal Disorders: No - GENITOURINARY/GYNECOLOGICAL Hx Urinary Tract Infection: Yes - PSYCHIATRIC Hx Substance Use: No - SURGICAL HISTORY Hx Arthroscopy: Yes (left shoulder torn rotator cuff repair) Hx Joint Replacement: Yes Other/Comment: deviated septal repair - ANESTHESIA Hx Anesthesia: Yes Hx Anesthesia Reactions: No Hx Malignant Hyperthermia: No Meds Allergies/Adverse Reactions: Allergies Allergy/AdvReac Type Severity Reaction Status Date / Time Penicillins Allergy Intermediate RASH Verified 07/20/18 16:33 shellfish derived Allergy Intermediate RASH Verified 07/27/18 17:49 shrimp Allergy Intermediate RASH Verified 07/27/18 17:49 - Medications Medications: Current Medications Acetaminophen (Tylenol 325mg Tab) 650 mg PO Q6 PRN PRN Reason: Fever >100.4 F Albuterol (Ventolin Hfa 90 Mcg/Actuation (8 G)) 2 puff IH TID PRN PRN Reason: Shortness of Breath Albuterol/Ipratropium (Duoneb 3 Mg/0.5 Mg (3 Ml) Ud) 3 ml INH RQ6 [facility] Last Admin: 07/29/18 13:49 Dose: Not Given Apixaban (Eliquis) 5 mg PO BID [facility]; Protocol Last Admin: 07/29/18 16:32 Dose: 5 mg Docusate Sodium (Colace) 100 mg PO BID [facility] Last Admin: 07/29/18 16:32 Dose: 100 mg Ergocalciferol (Drisdol 50,000 Intl Units Cap) 1 cap PO Q7D [facility] Last Admin: 07/27/18 21:32 Dose: 1 cap Magnesium Hydroxide (Milk Of Magnesia) 30 ml PO DAILY PRN PRN Reason: Constipation Montelukast Sodium (Singulair) 10 mg PO DAILY [facility] Last Admin: 07/29/18 09:00 Dose: 10 mg Multivitamins/Minerals (Therapeutic-M Tab) 1 tab PO DAILY [facility] Last Admin: 07/29/18 09:00 Dose: 1 tab Oxycodone HCl (Oxycontin Extended Release Tab) 20 mg PO Q12 [facility] Last Admin: 07/29/18 14:00 Dose: 20 mg Oxycodone/Acetaminophen (Percocet 5/325 Mg Tab) 2 tab PO Q6 PRN PRN Reason: Pain, severe (8-10) Stop: 08/01/18 13:34 Last Admin: 07/29/18 17:39 Dose: 2 tab Oxycodone/Acetaminophen (Percocet 5/325 Mg Tab) 1 tab PO Q6 PRN PRN Reason: Pain, moderate (4-7) Stop: 08/01/18 13:36 Pantoprazole Sodium (Protonix Ec Tab) 40 mg PO DAILY [facility] Last Admin: 07/29/18 09:00 Dose: 40 mg Pregabalin (Lyrica) 50 mg PO BID [facility] Last Admin: 07/29/18 16:35 Dose: 50 mg Fluticasone/Salmeterol (Advair Diskus 100/50) 1 puff INH Q12H [facility] Last Admin: 07/29/18 08:58 Dose: 1 puff Senna/Docusate Sodium (Senokot S 50 Mg-8.6 Mg) 2 tab PO HS PRN PRN Reason: Constipation Physical Exam - Constitutional Appears: Non-toxic, Chronically Ill - Head Exam Head Exam: NORMOCEPHALIC - Eye Exam Eye Exam: absent: Scleral icterus - ENT Exam ENT Exam: Mucous Membranes Dry - Neck Exam Neck exam: Negative for: Lymphadenopathy - Respiratory Exam Respiratory Exam: Decreased Breath Sounds, Clear to Auscultation Bilateral - Cardiovascular Exam Cardiovascular Exam: REGULAR RHYTHM, +S1, +S2 - GI/Abdominal Exam GI & Abdominal Exam: Diminished Bowel Sounds, Soft. absent: Tenderness - Rectal Exam Rectal Exam: Deferred - Exam Exam: NORMAL INSPECTION - Extremities Exam Extremities exam: Positive for: joint swelling, tenderness. Negative for: calf tenderness, normal inspection, pedal edema, pedal pulses present - Back Exam Back exam: absent: CVA tenderness (L), CVA tenderness (R) - Neurological Exam Neurological exam: Alert, CN II-XII Intact, Oriented x3, Reflexes Normal - Psychiatric Exam Psychiatric exam: Normal Mood - Skin Skin Exam: Dry Results - Vital Signs Recent Vital Signs: Last Vital Signs Temp 99.6 F 07/29/18 16:23 Pulse 100 H 07/29/18 16:23 Resp 20 07/29/18 16:23 BP 125/77 07/29/18 16:23 Pulse Ox 96 07/29/18 16:23 - Labs Result Diagrams: 07/29/18 09:18 07/29/18 09:18 Labs: Laboratory Results - last 24 hr 07/29/18 07/29/18 09:18 09:18 WBC 10.3 RBC 3.97 L Hgb 10.9 L Hct 33.6 L MCV 84.8 MCH 27.4 MCHC 32.4 L RDW 13.8 Plt Count 544 H D MPV 7.6 Neut % (Auto) 65.3 Lymph % (Auto) 21.8 [place] % (Auto) 10.0 Eos % (Auto) 2.7 Baso % (Auto) 0.2 Neut # (Auto) 6.7 Lymph # (Auto) 2.2 [place] # (Auto) 1.0 H Eos # (Auto) 0.3 Baso # (Auto) 0.0 Sodium 138 Potassium 4.1 Chloride 102 Carbon Dioxide 25 Anion Gap 15 BUN 13 Creatinine 0.8 Est GFR ( Amer) > 60 Est GFR (Non-Af Amer) > 60 Random Glucose 123 H Calcium 9.1 Assessment & Plan (1) DVT (deep venous thrombosis) Status: Acute Priority: High (2) Postoperative fever Status: Acute Priority: High (3) Primary osteoarthritis of left knee Status: Acute - Assessment and Plan (Free Text) Assessment: 63 year old male referred for ID eval s/p left TKR complicated by DVT at [facility] then transferred from [facility] to [place] for revision / evacuation of hemarthrosis all cultures negative IV antibiotics on hold cont to observe
[2018-07-30] MEDS: Albuterol-Ipratrop 3 mg / 0.5 (3 ml) UD INH SCH ×4 (01:08→20:03)
[2018-07-30 06:54] LABS: BASO # 0.1 K/uL (0.0-0.2); BASO % 0.9 % (0.0-2.0); EOS # 0.3 K/uL (0.0-0.7); EOS % 3.6 % (0.0-4.0); HEMOGLOBIN 10.8 g/dL (12.0-18.0); LYMPH # 3.5 K/uL (1.0-4.3); LYMPH % 37.3 % (20.0-40.0); MEAN CELL VOLUME 84.2 fl (80.0-94.0); MEAN CORPUSCULAR HEMOGLOBIN 27.2 pg (27.0-31.0); MEAN CORPUSCULAR HGB CONC 32.3 g/dL (33.0-37.0); MEAN PLATELET VOLUME 7.4 fl (7.2-11.7); MONO # 1.3 K/uL (0.0-0.8); MONO % 13.6 % (0.0-10.0); NEUT # 4.2 K/uL (1.8-7.0); NEUT % 44.6 % (50.0-75.0); NRBC % 0.1 % (0.0-0.0); RBC 3.96 Mil/uL (4.40-5.90); RED CELL DISTRIBUTION WIDTH 13.6 % (11.5-14.5); WHITE BLOOD COUNT 9.5 K/uL (4.8-10.8)
[2018-07-30 07:02] LABS: BLOOD UREA NITROGEN 15 mg/dl (9-20); CALCIUM 9.1 mg/dL (8.4-10.2); GFR NON-AFRICAN AMERICAN > 60
[2018-07-30] MEDS: Fluticasone-Salmeterol 100-50mcg Diskus INH SCH ×2 (08:34→21:00)
[2018-07-30] MEDS: Multivitamin With Minerals Tab PO SCH (08:35)
[2018-07-30] MEDS: Pantoprazole 40 mg EC Tab PO SCH (08:35)
[2018-07-30] MEDS: oxyCODONE 20 mg ER Tab (oxyCONTIN) PO SCH ×2 (08:37→21:00)
--- NOTE | 2018-07-30 10:54 | CP.PCM.PN ---
Subjective - Date & Time of Evaluation Date of Evaluation: 07/30/18 Time of Evaluation: 14:18 - Subjective Subjective: Patient states pain is well controlled. Progressing well. No new complaints. Objective - Vital Signs/Intake and Output Vital Signs (last 24 hours): Temp Pulse Resp BP Pulse Ox 99.0 F 109 H 20 99/66 L 97 07/30/18 10:28 07/30/18 10:28 07/30/18 10:28 07/30/18 10:28 07/30/18 10:28 - Medications Medications: Current Medications Acetaminophen (Tylenol 325mg Tab) 650 mg PO Q6 PRN PRN Reason: Fever >100.4 F Albuterol (Ventolin Hfa 90 Mcg/Actuation (8 G)) 2 puff IH TID PRN PRN Reason: Shortness of Breath Albuterol/Ipratropium (Duoneb 3 Mg/0.5 Mg (3 Ml) Ud) 3 ml INH RQ6 [facility] Last Admin: 07/30/18 07:56 Dose: Not Given Apixaban (Eliquis) 5 mg PO BID [facility]; Protocol Last Admin: 07/30/18 08:35 Dose: 5 mg Docusate Sodium (Colace) 100 mg PO BID [facility] Last Admin: 07/30/18 08:35 Dose: 100 mg Ergocalciferol (Drisdol 50,000 Intl Units Cap) 1 cap PO Q7D [facility] Last Admin: 07/27/18 21:32 Dose: 1 cap Magnesium Hydroxide (Milk Of Magnesia) 30 ml PO DAILY PRN PRN Reason: Constipation Montelukast Sodium (Singulair) 10 mg PO DAILY [facility] Last Admin: 07/30/18 08:35 Dose: 10 mg Multivitamins/Minerals (Therapeutic-M Tab) 1 tab PO DAILY [facility] Last Admin: 07/30/18 08:35 Dose: 1 tab Oxycodone HCl (Oxycontin Extended Release Tab) 20 mg PO Q12 [facility] Last Admin: 07/30/18 08:37 Dose: 20 mg Oxycodone/Acetaminophen (Percocet 5/325 Mg Tab) 2 tab PO Q6 PRN PRN Reason: Pain, severe (8-10) Stop: 08/01/18 13:34 Last Admin: 07/29/18 17:39 Dose: 2 tab Oxycodone/Acetaminophen (Percocet 5/325 Mg Tab) 1 tab PO Q6 PRN PRN Reason: Pain, moderate (4-7) Stop: 08/01/18 13:36 Pantoprazole Sodium (Protonix Ec Tab) 40 mg PO DAILY [facility] Last Admin: 07/30/18 08:35 Dose: 40 mg Pregabalin (Lyrica) 50 mg PO BID [facility] Last Admin: 07/30/18 08:37 Dose: 50 mg Fluticasone/Salmeterol (Advair Diskus 100/50) 1 puff INH Q12H [facility] Last Admin: 07/30/18 08:34 Dose: 1 puff Senna/Docusate Sodium (Senokot S 50 Mg-8.6 Mg) 2 tab PO HS PRN PRN Reason: Constipation - Labs Labs: 07/30/18 06:00 07/30/18 06:00 - Extremities Exam Additional comments: Left knee: incision dry, intact, no erythema, swelling continues to improve. Swelling to ankle a little better today, foot elevated, +ROM ankle/toes, knee ROM improving Assessment and Plan (1) Status post left knee replacement Assessment & Plan: Continue PT/OT patient progressing well, d/c planning to home plan for Thursday cont eliquis 5mg BID f/u labs d/w Dr. Kahn, agrees with above Status: Acute (2) DVT (deep venous thrombosis) Status: Acute
--- NOTE | 2018-07-30 12:59 | CP.PCM.PN ---
Subjective - Date & Time of Evaluation Date of Evaluation: 07/30/18 Time of Evaluation: 12:45 - Subjective Subjective: patient now with less pain, on oxycontin and percoset Objective - Vital Signs/Intake and Output Vital Signs (last 24 hours): Temp Pulse Resp BP Pulse Ox 99.0 F 109 H 20 99/66 L 97 07/30/18 10:28 07/30/18 10:28 07/30/18 10:28 07/30/18 10:28 07/30/18 10:28 - Medications Medications: Current Medications Acetaminophen (Tylenol 325mg Tab) 650 mg PO Q6 PRN PRN Reason: Fever >100.4 F Albuterol (Ventolin Hfa 90 Mcg/Actuation (8 G)) 2 puff IH TID PRN PRN Reason: Shortness of Breath Albuterol/Ipratropium (Duoneb 3 Mg/0.5 Mg (3 Ml) Ud) 3 ml INH RQ6 [facility] Last Admin: 07/30/18 07:56 Dose: Not Given Apixaban (Eliquis) 5 mg PO BID [facility]; Protocol Last Admin: 07/30/18 08:35 Dose: 5 mg Docusate Sodium (Colace) 100 mg PO BID [facility] Last Admin: 07/30/18 08:35 Dose: 100 mg Ergocalciferol (Drisdol 50,000 Intl Units Cap) 1 cap PO Q7D [facility] Last Admin: 07/27/18 21:32 Dose: 1 cap Magnesium Hydroxide (Milk Of Magnesia) 30 ml PO DAILY PRN PRN Reason: Constipation Montelukast Sodium (Singulair) 10 mg PO DAILY [facility] Last Admin: 07/30/18 08:35 Dose: 10 mg Multivitamins/Minerals (Therapeutic-M Tab) 1 tab PO DAILY [facility] Last Admin: 07/30/18 08:35 Dose: 1 tab Oxycodone HCl (Oxycontin Extended Release Tab) 20 mg PO Q12 [facility] Last Admin: 07/30/18 08:37 Dose: 20 mg Oxycodone/Acetaminophen (Percocet 5/325 Mg Tab) 2 tab PO Q6 PRN PRN Reason: Pain, severe (8-10) Stop: 08/01/18 13:34 Last Admin: 07/29/18 17:39 Dose: 2 tab Oxycodone/Acetaminophen (Percocet 5/325 Mg Tab) 1 tab PO Q6 PRN PRN Reason: Pain, moderate (4-7) Stop: 08/01/18 13:36 Pantoprazole Sodium (Protonix Ec Tab) 40 mg PO DAILY [facility] Last Admin: 07/30/18 08:35 Dose: 40 mg Pregabalin (Lyrica) 50 mg PO BID [facility] Last Admin: 07/30/18 08:37 Dose: 50 mg Fluticasone/Salmeterol (Advair Diskus 100/50) 1 puff INH Q12H [facility] Last Admin: 07/30/18 08:34 Dose: 1 puff Senna/Docusate Sodium (Senokot S 50 Mg-8.6 Mg) 2 tab PO HS PRN PRN Reason: Constipation - Labs Labs: 07/30/18 06:00 07/30/18 06:00 - Constitutional Appears: Well - Head Exam Head Exam: ATRAUMATIC, NORMAL INSPECTION, NORMOCEPHALIC - Eye Exam Eye Exam: EOMI, Normal appearance, PERRL Pupil Exam: NORMAL ACCOMODATION - ENT Exam ENT Exam: Mucous Membranes Moist, Normal Exam - Neck Exam Neck Exam: Full ROM, Normal Inspection - Respiratory Exam Respiratory Exam: Clear to Ausculation Bilateral, NORMAL BREATHING PATTERN - Cardiovascular Exam Cardiovascular Exam: REGULAR RHYTHM - GI/Abdominal Exam GI & Abdominal Exam: Soft, Normal Bowel Sounds - Rectal Exam Rectal Exam: NORMAL INSPECTION - Exam External exam: NORMAL EXTERNAL EXAM - Extremities Exam Extremities Exam: Full ROM, Normal Capillary Refill, Normal Inspection - Back Exam Back Exam: NORMAL INSPECTION - Neurological Exam Neurological Exam: Alert, Awake Neuro motor strength exam: Left Lower Extremity: 3 - Psychiatric Exam Psychiatric exam: Normal Affect, Normal Mood - Skin Skin Exam: Dry, Intact Assessment and Plan (1) Acute blood loss as cause of postoperative anemia Status: Acute (2) Anemia Status: Acute (3) Asthma Status: Acute (4) DVT (deep venous thrombosis) Status: Acute (5) HTN (hypertension) Status: Acute (6) Leukocytosis Status: Acute (7) Postoperative fever Status: Acute (8) Primary osteoarthritis of left knee Assessment & Plan: pain medication changed long acting oxycontin and percoset, paln for physical, occupational rec therapy Status: Acute
[2018-07-30] MEDS: Oxycodone/Acetaminophen 5/325 mg Tab PO PRN ×2 (13:58→19:49)
[2018-07-31] MEDS: Albuterol-Ipratrop 3 mg / 0.5 (3 ml) UD INH SCH ×4 (01:03→19:14)
[2018-07-31] MEDS: Oxycodone/Acetaminophen 5/325 mg Tab PO PRN ×2 (02:41→17:13)
[2018-07-31 07:09] LABS: BASO # 0.1 K/uL (0.0-0.2); EOS # 0.4 K/uL (0.0-0.7); EOS % 3.8 % (0.0-4.0); HEMOGLOBIN 10.4 g/dL (12.0-18.0); LYMPH # 2.9 K/uL (1.0-4.3); LYMPH % 30.4 % (20.0-40.0); MEAN CELL VOLUME 85.8 fl (80.0-94.0); MEAN CORPUSCULAR HEMOGLOBIN 27.9 pg (27.0-31.0); MEAN CORPUSCULAR HGB CONC 32.6 g/dL (33.0-37.0); MEAN PLATELET VOLUME 7.5 fl (7.2-11.7); MONO # 0.9 K/uL (0.0-0.8); NEUT # 5.2 K/uL (1.8-7.0); NEUT % 54.8 % (50.0-75.0); NRBC % 0.2 % (0.0-0.0); RBC 3.71 Mil/uL (4.40-5.90); RED CELL DISTRIBUTION WIDTH 13.5 % (11.5-14.5); WHITE BLOOD COUNT 9.5 K/uL (4.8-10.8)
[2018-07-31 07:25] LABS: BLOOD UREA NITROGEN 15 mg/dl (9-20); CALCIUM 9.1 mg/dL (8.4-10.2); GFR NON-AFRICAN AMERICAN > 60
[2018-07-31] MEDS: oxyCODONE 20 mg ER Tab (oxyCONTIN) PO SCH ×2 (08:14→20:30)
[2018-07-31] MEDS: Fluticasone-Salmeterol 100-50mcg Diskus INH SCH ×2 (08:15→20:32)
[2018-07-31] MEDS: Pantoprazole 40 mg EC Tab PO SCH (08:15)
[2018-07-31] MEDS: Multivitamin With Minerals Tab PO SCH (08:16)
--- NOTE | 2018-07-31 13:13 | CP.PCM.PN ---
Subjective - Date & Time of Evaluation Date of Evaluation: 07/31/18 Time of Evaluation: 08:35 - Subjective Subjective: patient feeling better with changing pain meds Objective - Vital Signs/Intake and Output Vital Signs (last 24 hours): Temp Pulse Resp BP Pulse Ox 97.2 F L 92 H 20 100/66 97 07/30/18 22:00 07/30/18 22:00 07/30/18 22:00 07/30/18 22:00 07/30/18 22:00 - Medications Medications: Current Medications Acetaminophen (Tylenol 325mg Tab) 650 mg PO Q6 PRN PRN Reason: Fever >100.4 F Albuterol (Ventolin Hfa 90 Mcg/Actuation (8 G)) 2 puff IH TID PRN PRN Reason: Shortness of Breath Albuterol/Ipratropium (Duoneb 3 Mg/0.5 Mg (3 Ml) Ud) 3 ml INH RQ6 [facility] Last Admin: 07/31/18 08:35 Dose: Not Given Apixaban (Eliquis) 5 mg PO BID [facility]; Protocol Last Admin: 07/31/18 08:15 Dose: 5 mg Docusate Sodium (Colace) 100 mg PO BID [facility] Last Admin: 07/31/18 08:15 Dose: 100 mg Ergocalciferol (Drisdol 50,000 Intl Units Cap) 1 cap PO Q7D [facility] Last Admin: 07/27/18 21:32 Dose: 1 cap Magnesium Hydroxide (Milk Of Magnesia) 30 ml PO DAILY PRN PRN Reason: Constipation Montelukast Sodium (Singulair) 10 mg PO DAILY [facility] Last Admin: 07/31/18 08:15 Dose: 10 mg Multivitamins/Minerals (Therapeutic-M Tab) 1 tab PO DAILY [facility] Last Admin: 07/31/18 08:16 Dose: 1 tab Oxycodone HCl (Oxycontin Extended Release Tab) 20 mg PO Q12 [facility] Last Admin: 07/31/18 08:14 Dose: 20 mg Oxycodone/Acetaminophen (Percocet 5/325 Mg Tab) 2 tab PO Q6 PRN PRN Reason: Pain, severe (8-10) Stop: 08/01/18 13:34 Last Admin: 07/31/18 02:41 Dose: 2 tab Oxycodone/Acetaminophen (Percocet 5/325 Mg Tab) 1 tab PO Q6 PRN PRN Reason: Pain, moderate (4-7) Stop: 08/01/18 13:36 Last Admin: 07/30/18 13:58 Dose: 1 tab Pantoprazole Sodium (Protonix Ec Tab) 40 mg PO DAILY [facility] Last Admin: 07/31/18 08:15 Dose: 40 mg Pregabalin (Lyrica) 50 mg PO BID [facility] Last Admin: 07/31/18 08:14 Dose: 50 mg Fluticasone/Salmeterol (Advair Diskus 100/50) 1 puff INH Q12H [facility] Last Admin: 07/31/18 08:15 Dose: 1 puff Senna/Docusate Sodium (Senokot S 50 Mg-8.6 Mg) 2 tab PO HS PRN PRN Reason: Constipation Last Admin: 07/30/18 21:02 Dose: 2 tab - Labs Labs: 07/31/18 05:35 07/31/18 05:35 - Constitutional Appears: Well - Head Exam Head Exam: ATRAUMATIC, NORMAL INSPECTION, NORMOCEPHALIC - Eye Exam Eye Exam: EOMI, Normal appearance Pupil Exam: NORMAL ACCOMODATION, PERRL - ENT Exam ENT Exam: Mucous Membranes Moist, Normal Exam - Neck Exam Neck Exam: Normal Inspection - Respiratory Exam Respiratory Exam: Clear to Ausculation Bilateral, NORMAL BREATHING PATTERN - Cardiovascular Exam Cardiovascular Exam: REGULAR RHYTHM - GI/Abdominal Exam GI & Abdominal Exam: Soft, Normal Bowel Sounds - Exam External exam: NORMAL EXTERNAL EXAM - Extremities Exam Extremities Exam: Normal Inspection - Back Exam Back Exam: NORMAL INSPECTION - Neurological Exam Neurological Exam: Alert, Awake Neuro motor strength exam: Left Lower Extremity: 3 - Psychiatric Exam Psychiatric exam: Normal Affect - Skin Skin Exam: Normal Color Assessment and Plan (1) Acute blood loss as cause of postoperative anemia Status: Acute (2) Anemia Status: Acute (3) Asthma Status: Acute (4) DVT (deep venous thrombosis) Status: Acute (5) HTN (hypertension) Status: Acute (6) Leukocytosis Status: Acute (7) Postoperative fever Status: Acute (8) Primary osteoarthritis of left knee Assessment & Plan: to continue therapy at present, improve range of motion of the left knee, on oxycontin and percoset prn Status: Acute
--- NOTE | 2018-08-01 00:40 | CP.PCM.HP ---
History of Present Illness - History of Present Illness History of Present Illness: CC: Left Knee Hemarthrosis and Fever History of Present Illness: A 63-year-old male with history of Osteoarthritis status post knee replacement at [facility], and hospital course complicated with left popliteal DVT on Eliquis. Then patient was admitted to TCU for DARION when he complicated with Luis Miguel of fever and Leukocytosis. The Orthopedist decided to do knee washout to save the Prosthesis. Perioperative finding and analysis was Just Hemarthrosis when he was transferred back to [facility]/OT. patient unable to flex at the knee. +Mild degree fever. Present on Admission - Present on Admission Any Indicators Present on Admission: No Review of Systems - Review of Systems All systems: reviewed and no additional remarkable complaints except Review of Systems: as per HPI Past Patient History - Infectious Disease Hx of Infectious Diseases: None - Past Medical History & Family History Past Medical History?: Yes Past Family History: Reviewed and not pertinent - Past Social History Smoking Status: Never Smoked Alcohol: None Drugs: Denies - CARDIAC Hx Cardiac Disorders: Yes (CAD) - PULMONARY Hx Respiratory Disorders: Yes Hx Asthma: Yes Hx Chronic Obstructive Pulmonary Disease (COPD): Yes - NEUROLOGICAL Hx Neurological Disorder: Yes Hx Dizziness: Yes (sometimes ) - HEENT Hx HEENT Problems: Yes (deviated septum repair) - RENAL Hx Chronic Kidney Disease: No - ENDOCRINE/METABOLIC Hx Endocrine Disorders: No - HEMATOLOGICAL/ONCOLOGICAL Hx Blood Disorders: Yes Hx Shingles: Yes - INTEGUMENTARY Hx Dermatological Problems: No - MUSCULOSKELETAL/RHEUMATOLOGICAL Hx Falls: No - GASTROINTESTINAL Hx Gastrointestinal Disorders: No - GENITOURINARY/GYNECOLOGICAL Hx Urinary Tract Infection: Yes - PSYCHIATRIC Hx Substance Use: No - SURGICAL HISTORY Hx Arthroscopy: Yes (left shoulder torn rotator cuff repair) Hx Joint Replacement: Yes Other/Comment: deviated septal repair - ANESTHESIA Hx Anesthesia: Yes Hx Anesthesia Reactions: No Hx Malignant Hyperthermia: No Meds Home Medications: Home Medication List Medication Instructions Recorded Confirmed Type Apixaban [Eliquis] 5 mg PO BID tab 08/02/18 Rx Docusate Sodium/Sennosides A 2 tab PO HS PRN tab 08/02/18 Rx [Senokot S 50 MG-8.6 MG] Docusate [Colace] 100 mg PO BID cap 08/02/18 Rx Ergocalciferol [Drisdol 50,000 1 cap PO Q7D cap 08/02/18 Rx Intl Units Cap] Fluticasone/Salmeterol 100/50 1 puff INH Q12H puff 08/02/18 Rx [Advair Diskus 100/50] Montelukast [Singulair] 10 mg PO DAILY tab 08/02/18 Rx Multimineral/Multivitamin 1 tab PO DAILY tab 08/02/18 Rx [Therapeutic-M Tab] Pantoprazole [Protonix EC Tab] 40 mg PO DAILY ect 08/02/18 Rx oxyCODONE [oxyCONTIN Extended 20 mg PO Q12 tabsr 08/02/18 Rx Release Tab] oxyCODONE/Acetaminophen [Percocet 2 tab PO Q6 PRN tab 08/02/18 Rx 5/325 mg Tab] Allergies/Adverse Reactions: Allergies Allergy/AdvReac Type Severity Reaction Status Date / Time Penicillins Allergy Intermediate RASH Verified 07/20/18 16:33 shellfish derived Allergy Intermediate RASH Verified 07/27/18 17:49 shrimp Allergy Intermediate RASH Verified 07/27/18 17:49 Physical Exam - Constitutional Appears: Well, No Acute Distress - Head Exam Head Exam: ATRAUMATIC, NORMAL INSPECTION, NORMOCEPHALIC - Eye Exam Eye Exam: EOMI, Normal appearance, PERRL Pupil Exam: NORMAL ACCOMODATION, PERRL - ENT Exam ENT Exam: Mucous Membranes Moist, Normal Exam - Neck Exam Neck exam: Positive for: Normal Inspection - Respiratory Exam Respiratory Exam: Clear to Auscultation Bilateral, NORMAL BREATHING PATTERN - Cardiovascular Exam Cardiovascular Exam: REGULAR RHYTHM, +S1, +S2 - GI/Abdominal Exam GI & Abdominal Exam: Normal Bowel Sounds, Soft. absent: Tenderness - Extremities Exam Additional comments: Right Knee Incision site is clean. Minimal Flexion at the right knee. - Back Exam Back exam: NORMAL INSPECTION - Neurological Exam Neurological exam: Alert, CN II-XII Intact, Normal Gait, Oriented x3, Reflexes Normal - Psychiatric Exam Psychiatric exam: Normal Affect, Normal Mood - Skin Skin Exam: Dry, Intact, Normal Color, Warm Results - Vital Signs Recent Vital Signs: Last Vital Signs Temp 99.0 F 07/31/18 20:19 Pulse 90 07/31/18 20:19 Resp 20 07/31/18 20:19 BP 103/66 07/31/18 20:19 Pulse Ox 98 12/22/18 20:19 - Labs Result Diagrams: 08/02/18 05:45 08/02/18 05:45 Labs: Laboratory Results - last 24 hr 07/31/18 07/31/18 05:35 05:35 WBC 9.5 RBC 3.71 L Hgb 10.4 L Hct 31.8 L MCV 85.8 MCH 27.9 MCHC 32.6 L RDW 13.5 Plt Count 497 H MPV 7.5 Neut % (Auto) 54.8 Lymph % (Auto) 30.4 [place] % (Auto) 10.0 Eos % (Auto) 3.8 Baso % (Auto) 1.0 Neut # (Auto) 5.2 Lymph # (Auto) 2.9 [place] # (Auto) 0.9 H Eos # (Auto) 0.4 Baso # (Auto) 0.1 Sodium 137 Potassium 4.1 Chloride 98 Carbon Dioxide 29 Anion Gap 14 BUN 15 Creatinine 0.9 Est GFR ( Amer) > 60 Est GFR (Non-Af Amer) > 60 Random Glucose 125 H Calcium 9.1 Assessment & Plan (1) Anemia Status: Acute (2) DVT (deep venous thrombosis) Status: Acute Priority: High (3) Primary osteoarthritis of left knee Status: Acute (4) Status post left knee replacement Status: Acute Priority: Medium (5) Asthma Status: Chronic Priority: High (6) HTN (hypertension) Status: Chronic Priority: Medium - Assessment and Plan (Free Text) Plan: IV Abx Eliquis Pain Medication PRN Physiatry Consult PT/OT
--- NOTE | 2018-08-01 00:44 | CP.PCM.PN ---
Subjective - Date & Time of Evaluation Date of Evaluation: 07/28/18 Time of Evaluation: 07:55 Objective - Vital Signs/Intake and Output Vital Signs (last 24 hours): Temp Pulse Resp BP Pulse Ox 99.0 F 90 20 103/66 98 07/31/18 20:19 07/31/18 20:19 07/31/18 20:19 07/31/18 20:19 07/31/18 20:19 - Medications Medications: Current Medications Acetaminophen (Tylenol 325mg Tab) 650 mg PO Q6 PRN PRN Reason: Fever >100.4 F Albuterol (Ventolin Hfa 90 Mcg/Actuation (8 G)) 2 puff IH TID PRN PRN Reason: Shortness of Breath Albuterol/Ipratropium (Duoneb 3 Mg/0.5 Mg (3 Ml) Ud) 3 ml INH RQ6 [facility] Last Admin: 07/31/18 19:14 Dose: Not Given Apixaban (Eliquis) 5 mg PO BID [facility]; Protocol Last Admin: 07/31/18 17:14 Dose: 5 mg Docusate Sodium (Colace) 100 mg PO BID [facility] Last Admin: 07/31/18 17:14 Dose: Not Given Ergocalciferol (Drisdol 50,000 Intl Units Cap) 1 cap PO Q7D [facility] Last Admin: 07/27/18 21:32 Dose: 1 cap Magnesium Hydroxide (Milk Of Magnesia) 30 ml PO DAILY PRN PRN Reason: Constipation Montelukast Sodium (Singulair) 10 mg PO DAILY [facility] Last Admin: 07/31/18 08:15 Dose: 10 mg Multivitamins/Minerals (Therapeutic-M Tab) 1 tab PO DAILY [facility] Last Admin: 07/31/18 08:16 Dose: 1 tab Oxycodone HCl (Oxycontin Extended Release Tab) 20 mg PO Q12 [facility] Last Admin: 07/31/18 20:30 Dose: 20 mg Oxycodone/Acetaminophen (Percocet 5/325 Mg Tab) 2 tab PO Q6 PRN PRN Reason: Pain, severe (8-10) Stop: 08/01/18 13:34 Last Admin: 07/31/18 17:13 Dose: 2 tab Oxycodone/Acetaminophen (Percocet 5/325 Mg Tab) 1 tab PO Q6 PRN PRN Reason: Pain, moderate (4-7) Stop: 08/01/18 13:36 Last Admin: 07/30/18 13:58 Dose: 1 tab Pantoprazole Sodium (Protonix Ec Tab) 40 mg PO DAILY [facility] Last Admin: 07/31/18 08:15 Dose: 40 mg Pregabalin (Lyrica) 50 mg PO BID [facility] Last Admin: 07/31/18 17:09 Dose: 50 mg Fluticasone/Salmeterol (Advair Diskus 100/50) 1 puff INH Q12H [facility] Last Admin: 07/31/18 20:32 Dose: 1 puff Senna/Docusate Sodium (Senokot S 50 Mg-8.6 Mg) 2 tab PO HS PRN PRN Reason: Constipation Last Admin: 07/30/18 21:02 Dose: 2 tab - Labs Labs: 07/31/18 05:35 07/31/18 05:35
--- NOTE | 2018-08-01 00:45 | CP.PCM.PN ---
Subjective - Date & Time of Evaluation Date of Evaluation: 07/29/18 Time of Evaluation: 08:10 Objective - Vital Signs/Intake and Output Vital Signs (last 24 hours): Temp Pulse Resp BP Pulse Ox 99.0 F 90 20 103/66 98 07/31/18 20:19 07/31/18 20:19 07/31/18 20:19 07/31/18 20:19 07/31/18 20:19 - Medications Medications: Current Medications Acetaminophen (Tylenol 325mg Tab) 650 mg PO Q6 PRN PRN Reason: Fever >100.4 F Albuterol (Ventolin Hfa 90 Mcg/Actuation (8 G)) 2 puff IH TID PRN PRN Reason: Shortness of Breath Albuterol/Ipratropium (Duoneb 3 Mg/0.5 Mg (3 Ml) Ud) 3 ml INH RQ6 [facility] Last Admin: 07/31/18 19:14 Dose: Not Given Apixaban (Eliquis) 5 mg PO BID [facility]; Protocol Last Admin: 07/31/18 17:14 Dose: 5 mg Docusate Sodium (Colace) 100 mg PO BID [facility] Last Admin: 07/31/18 17:14 Dose: Not Given Ergocalciferol (Drisdol 50,000 Intl Units Cap) 1 cap PO Q7D [facility] Last Admin: 07/27/18 21:32 Dose: 1 cap Magnesium Hydroxide (Milk Of Magnesia) 30 ml PO DAILY PRN PRN Reason: Constipation Montelukast Sodium (Singulair) 10 mg PO DAILY [facility] Last Admin: 07/31/18 08:15 Dose: 10 mg Multivitamins/Minerals (Therapeutic-M Tab) 1 tab PO DAILY [facility] Last Admin: 07/31/18 08:16 Dose: 1 tab Oxycodone HCl (Oxycontin Extended Release Tab) 20 mg PO Q12 [facility] Last Admin: 07/31/18 20:30 Dose: 20 mg Oxycodone/Acetaminophen (Percocet 5/325 Mg Tab) 2 tab PO Q6 PRN PRN Reason: Pain, severe (8-10) Stop: 08/01/18 13:34 Last Admin: 07/31/18 17:13 Dose: 2 tab Oxycodone/Acetaminophen (Percocet 5/325 Mg Tab) 1 tab PO Q6 PRN PRN Reason: Pain, moderate (4-7) Stop: 08/01/18 13:36 Last Admin: 07/30/18 13:58 Dose: 1 tab Pantoprazole Sodium (Protonix Ec Tab) 40 mg PO DAILY [facility] Last Admin: 07/31/18 08:15 Dose: 40 mg Pregabalin (Lyrica) 50 mg PO BID [facility] Last Admin: 07/31/18 17:09 Dose: 50 mg Fluticasone/Salmeterol (Advair Diskus 100/50) 1 puff INH Q12H [facility] Last Admin: 07/31/18 20:32 Dose: 1 puff Senna/Docusate Sodium (Senokot S 50 Mg-8.6 Mg) 2 tab PO HS PRN PRN Reason: Constipation Last Admin: 07/30/18 21:02 Dose: 2 tab - Labs Labs: 07/31/18 05:35 07/31/18 05:35
--- NOTE | 2018-08-01 00:46 | CP.PCM.PN ---
Subjective - Date & Time of Evaluation Date of Evaluation: 07/30/18 Time of Evaluation: 10:25 - Subjective Subjective: Seen and examined at the bed side. S/P Left TKR at [facility], and S/P Hemarthrosis evacuation at [facility] after spike of fever. Continue to have severe limitation of Flexion of the Left Knee. Patient will need continued PT/OT for further improvement. In the mean time, patient will need Hospital Bed for repositioning as he will prefer to have the therapy as an outpatient. Denies fever or chills. Pain Minimal at rest. Good appetite and Normal BMV. Objective - Vital Signs/Intake and Output Vital Signs (last 24 hours): Temp Pulse Resp BP Pulse Ox 99.0 F 90 20 103/66 98 07/31/18 20:19 07/31/18 20:19 07/31/18 20:19 07/31/18 20:19 07/31/18 20:19 - Medications Medications: Current Medications Acetaminophen (Tylenol 325mg Tab) 650 mg PO Q6 PRN PRN Reason: Fever >100.4 F Albuterol (Ventolin Hfa 90 Mcg/Actuation (8 G)) 2 puff IH TID PRN PRN Reason: Shortness of Breath Albuterol/Ipratropium (Duoneb 3 Mg/0.5 Mg (3 Ml) Ud) 3 ml INH RQ6 [facility] Last Admin: 07/31/18 19:14 Dose: Not Given Apixaban (Eliquis) 5 mg PO BID [facility]; Protocol Last Admin: 07/31/18 17:14 Dose: 5 mg Docusate Sodium (Colace) 100 mg PO BID [facility] Last Admin: 07/31/18 17:14 Dose: Not Given Ergocalciferol (Drisdol 50,000 Intl Units Cap) 1 cap PO Q7D [facility] Last Admin: 07/27/18 21:32 Dose: 1 cap Magnesium Hydroxide (Milk Of Magnesia) 30 ml PO DAILY PRN PRN Reason: Constipation Montelukast Sodium (Singulair) 10 mg PO DAILY [facility] Last Admin: 07/31/18 08:15 Dose: 10 mg Multivitamins/Minerals (Therapeutic-M Tab) 1 tab PO DAILY [facility] Last Admin: 07/31/18 08:16 Dose: 1 tab Oxycodone HCl (Oxycontin Extended Release Tab) 20 mg PO Q12 [facility] Last Admin: 07/31/18 20:30 Dose: 20 mg Oxycodone/Acetaminophen (Percocet 5/325 Mg Tab) 2 tab PO Q6 PRN PRN Reason: Pain, severe (8-10) Stop: 08/01/18 13:34 Last Admin: 07/31/18 17:13 Dose: 2 tab Oxycodone/Acetaminophen (Percocet 5/325 Mg Tab) 1 tab PO Q6 PRN PRN Reason: Pain, moderate (4-7) Stop: 08/01/18 13:36 Last Admin: 07/30/18 13:58 Dose: 1 tab Pantoprazole Sodium (Protonix Ec Tab) 40 mg PO DAILY [facility] Last Admin: 07/31/18 08:15 Dose: 40 mg Pregabalin (Lyrica) 50 mg PO BID [facility] Last Admin: 07/31/18 17:09 Dose: 50 mg Fluticasone/Salmeterol (Advair Diskus 100/50) 1 puff INH Q12H [facility] Last Admin: 07/31/18 20:32 Dose: 1 puff Senna/Docusate Sodium (Senokot S 50 Mg-8.6 Mg) 2 tab PO HS PRN PRN Reason: Constipation Last Admin: 07/30/18 21:02 Dose: 2 tab - Labs Labs: 07/31/18 05:35 07/31/18 05:35 - Constitutional Appears: Well, No Acute Distress - Head Exam Head Exam: ATRAUMATIC, NORMAL INSPECTION, NORMOCEPHALIC - Eye Exam Eye Exam: EOMI, Normal appearance, PERRL Pupil Exam: NORMAL ACCOMODATION, PERRL - ENT Exam ENT Exam: Mucous Membranes Moist, Normal Exam - Neck Exam Neck Exam: Full ROM, Normal Inspection. absent: Lymphadenopathy - Respiratory Exam Respiratory Exam: Clear to Ausculation Bilateral, NORMAL BREATHING PATTERN - Cardiovascular Exam Cardiovascular Exam: REGULAR RHYTHM, +S1, +S2. absent: Murmur - GI/Abdominal Exam GI & Abdominal Exam: Soft, Normal Bowel Sounds. absent: Tenderness - Extremities Exam Extremities Exam: Joint Swelling, Normal Capillary Refill, Pedal Edema, Tenderness (at Left Knee on active/Passive Movement or Strech for further ROM.) - Back Exam Back Exam: Full ROM, NORMAL INSPECTION - Neurological Exam Neurological Exam: Alert, Awake, CN II-XII Intact, Normal Gait, Oriented x3 - Psychiatric Exam Psychiatric exam: Normal Affect, Normal Mood - Skin Skin Exam: Dry, Intact, Normal Color, Warm Assessment and Plan (1) Acute blood loss as cause of postoperative anemia Assessment & Plan: Hgb Stable at >10mg/dl, Status: Resolved (2) DVT (deep venous thrombosis) Status: Acute (3) Primary osteoarthritis of left knee Status: Acute (4) Status post left knee replacement Status: Acute (5) Asthma Status: Chronic (6) HTN (hypertension) Status: Chronic (7) Postoperative fever Status: Resolved - Assessment and Plan (Free Text) Plan: Continue PT/OT Pain medication PRN Continue Lovenox Recommended Semi-Electric Hospital Bed due to Limited ROM at the Left Knee Advance D/C Planning
--- NOTE | 2018-08-01 00:46 | CP.PCM.PN ---
Subjective - Date & Time of Evaluation Date of Evaluation: 07/31/18 Time of Evaluation: 17:15 - Subjective Subjective: Seen and examined at the bed side. S/P Left TKR at [email or web address]], and S/P Hemarthrosis evacuation at [facility] afetr spike of fever. Continue to have severe limitation of Flexion of the Left Knee. Patient will need continued PT/OT for further improvement. In the mean time, patient will need Hospital Bed for repositioning as he will prefer to have the therapy as an outpatient. Denies fever or chills. Pain Minimal at rest. Objective - Vital Signs/Intake and Output Vital Signs (last 24 hours): Temp Pulse Resp BP Pulse Ox 99.0 F 90 20 103/66 98 07/31/18 20:19 07/31/18 20:19 07/31/18 20:19 07/31/18 20:19 07/31/18 20:19 - Medications Medications: Current Medications Acetaminophen (Tylenol 325mg Tab) 650 mg PO Q6 PRN PRN Reason: Fever >100.4 F Albuterol (Ventolin Hfa 90 Mcg/Actuation (8 G)) 2 puff IH TID PRN PRN Reason: Shortness of Breath Albuterol/Ipratropium (Duoneb 3 Mg/0.5 Mg (3 Ml) Ud) 3 ml INH RQ6 [facility] Last Admin: 07/31/18 19:14 Dose: Not Given Apixaban (Eliquis) 5 mg PO BID [facility]; Protocol Last Admin: 07/31/18 17:14 Dose: 5 mg Docusate Sodium (Colace) 100 mg PO BID [facility] Last Admin: 07/31/18 17:14 Dose: Not Given Ergocalciferol (Drisdol 50,000 Intl Units Cap) 1 cap PO Q7D [facility] Last Admin: 07/27/18 21:32 Dose: 1 cap Magnesium Hydroxide (Milk Of Magnesia) 30 ml PO DAILY PRN PRN Reason: Constipation Montelukast Sodium (Singulair) 10 mg PO DAILY [facility] Last Admin: 07/31/18 08:15 Dose: 10 mg Multivitamins/Minerals (Therapeutic-M Tab) 1 tab PO DAILY [facility] Last Admin: 07/31/18 08:16 Dose: 1 tab Oxycodone HCl (Oxycontin Extended Release Tab) 20 mg PO Q12 [facility] Last Admin: 07/31/18 20:30 Dose: 20 mg Oxycodone/Acetaminophen (Percocet 5/325 Mg Tab) 2 tab PO Q6 PRN PRN Reason: Pain, severe (8-10) Stop: 08/01/18 13:34 Last Admin: 07/31/18 17:13 Dose: 2 tab Oxycodone/Acetaminophen (Percocet 5/325 Mg Tab) 1 tab PO Q6 PRN PRN Reason: Pain, moderate (4-7) Stop: 08/01/18 13:36 Last Admin: 07/30/18 13:58 Dose: 1 tab Pantoprazole Sodium (Protonix Ec Tab) 40 mg PO DAILY [facility] Last Admin: 07/31/18 08:15 Dose: 40 mg Pregabalin (Lyrica) 50 mg PO BID [facility] Last Admin: 07/31/18 17:09 Dose: 50 mg Fluticasone/Salmeterol (Advair Diskus 100/50) 1 puff INH Q12H [facility] Last Admin: 07/31/18 20:32 Dose: 1 puff Senna/Docusate Sodium (Senokot S 50 Mg-8.6 Mg) 2 tab PO HS PRN PRN Reason: Constipation Last Admin: 07/30/18 21:02 Dose: 2 tab - Labs Labs: 07/31/18 05:35 07/31/18 05:35 - Constitutional Appears: Well, No Acute Distress - Head Exam Head Exam: ATRAUMATIC, NORMAL INSPECTION, NORMOCEPHALIC - Eye Exam Eye Exam: EOMI, Normal appearance, PERRL Pupil Exam: NORMAL ACCOMODATION, PERRL - ENT Exam ENT Exam: Mucous Membranes Moist, Normal Exam - Neck Exam Neck Exam: Full ROM, Normal Inspection. absent: Lymphadenopathy - Respiratory Exam Respiratory Exam: Clear to Ausculation Bilateral, NORMAL BREATHING PATTERN - Cardiovascular Exam Cardiovascular Exam: REGULAR RHYTHM, +S1, +S2. absent: Murmur - GI/Abdominal Exam GI & Abdominal Exam: Soft, Normal Bowel Sounds. absent: Tenderness - Extremities Exam Extremities Exam: Normal Capillary Refill (ditlly). absent: Calf Tenderness, Joint Swelling Additional comments: Left Knee Surgical scar healing well. Limited ROM at the left Knee Joint. No erythema or discharge. - Back Exam Back Exam: Full ROM, NORMAL INSPECTION - Neurological Exam Neurological Exam: Alert, Awake, CN II-XII Intact, Normal Gait, Oriented x3 - Psychiatric Exam Psychiatric exam: Normal Affect, Normal Mood - Skin Skin Exam: Dry, Intact, Normal Color, Warm Assessment and Plan (1) Status post left knee replacement Status: Acute (2) Primary osteoarthritis of left knee Status: Acute (3) DVT (deep venous thrombosis) Status: Acute (4) Anemia Status: Acute (5) Asthma Status: Chronic (6) HTN (hypertension) Status: Chronic (7) Postoperative fever Status: Resolved - Assessment and Plan (Free Text) Plan: Continue PT/OT Pain medication PRN Continue Lovenox Recommended Semi-Electric Hospital Bed due to Limited ROM at the Left Knee Advance D/C Planning
[2018-08-01] MEDS: Albuterol-Ipratrop 3 mg / 0.5 (3 ml) UD INH SCH ×3 (02:00→19:45)
[2018-08-01] MEDS: Oxycodone/Acetaminophen 5/325 mg Tab PO PRN ×2 (04:06→13:06)
[2018-08-01 07:43] LABS: BASO # 0.1 K/uL (0.0-0.2); BASO % 0.8 % (0.0-2.0); EOS # 0.3 K/uL (0.0-0.7); EOS % 3.3 % (0.0-4.0); HEMOGLOBIN 10.4 g/dL (12.0-18.0); LYMPH # 2.2 K/uL (1.0-4.3); MEAN CELL VOLUME 84.6 fl (80.0-94.0); MEAN CORPUSCULAR HEMOGLOBIN 27.1 pg (27.0-31.0); MEAN CORPUSCULAR HGB CONC 32.1 g/dL (33.0-37.0); MEAN PLATELET VOLUME 7.8 fl (7.2-11.7); MONO # 0.7 K/uL (0.0-0.8); MONO % 8.2 % (0.0-10.0); NEUT # 5.2 K/uL (1.8-7.0); NEUT % 61.7 % (50.0-75.0); NRBC % 0.1 % (0.0-0.0); RBC 3.85 Mil/uL (4.40-5.90); RED CELL DISTRIBUTION WIDTH 13.6 % (11.5-14.5); WHITE BLOOD COUNT 8.5 K/uL (4.8-10.8)
[2018-08-01] MEDS: oxyCODONE 20 mg ER Tab (oxyCONTIN) PO SCH ×2 (08:13→20:11)
[2018-08-01] MEDS: Fluticasone-Salmeterol 100-50mcg Diskus INH SCH ×2 (08:14→20:13)
[2018-08-01] MEDS: Pantoprazole 40 mg EC Tab PO SCH (08:15)
[2018-08-01] MEDS: Multivitamin With Minerals Tab PO SCH (08:15)
[2018-08-01 08:26] LABS: BLOOD UREA NITROGEN 14 mg/dl (9-20); CALCIUM 9.2 mg/dL (8.4-10.2); GFR NON-AFRICAN AMERICAN > 60
[2018-08-01] MEDS ORDERED: Oxycodone/Acetaminophen 5/325 mg Tab PO PRN ×2 (18:30→18:31)
[2018-08-02] MEDS: Albuterol-Ipratrop 3 mg / 0.5 (3 ml) UD INH SCH ×3 (01:09→13:18)
[2018-08-02 06:21] LABS: BASO # 0.1 K/uL (0.0-0.2); BASO % 0.8 % (0.0-2.0); EOS # 0.4 K/uL (0.0-0.7); EOS % 3.9 % (0.0-4.0); HEMOGLOBIN 10.7 g/dL (12.0-18.0); LYMPH # 2.8 K/uL (1.0-4.3); LYMPH % 28.8 % (20.0-40.0); MEAN CELL VOLUME 85.7 fl (80.0-94.0); MEAN CORPUSCULAR HEMOGLOBIN 27.2 pg (27.0-31.0); MEAN CORPUSCULAR HGB CONC 31.7 g/dL (33.0-37.0); MEAN PLATELET VOLUME 7.2 fl (7.2-11.7); MONO # 0.7 K/uL (0.0-0.8); MONO % 7.7 % (0.0-10.0); NEUT # 5.7 K/uL (1.8-7.0); NEUT % 58.8 % (50.0-75.0); NRBC % 0.2 % (0.0-0.0); RBC 3.92 Mil/uL (4.40-5.90); RED CELL DISTRIBUTION WIDTH 13.5 % (11.5-14.5); WHITE BLOOD COUNT 9.7 K/uL (4.8-10.8)
[2018-08-02 06:32] LABS: BLOOD UREA NITROGEN 13 mg/dl (9-20); CALCIUM 9.2 mg/dL (8.4-10.2); GFR NON-AFRICAN AMERICAN > 60
[2018-08-02] MEDS: Fluticasone-Salmeterol 100-50mcg Diskus INH SCH (08:27)
[2018-08-02] MEDS: Multivitamin With Minerals Tab PO SCH (08:28)
[2018-08-02] MEDS: Pantoprazole 40 mg EC Tab PO SCH (08:28)
[2018-08-02] MEDS: oxyCODONE 20 mg ER Tab (oxyCONTIN) PO SCH (08:31)
--- NOTE | 2018-08-02 10:33 | CP.PCM.PN ---
Subjective - Date & Time of Evaluation Date of Evaluation: 08/02/18 Time of Evaluation: 10:31 - Subjective Subjective: Patient states pain is well controlled, progressing well with pt. Denies CP/SOB/dizziness. ankle pain has resolved Objective - Vital Signs/Intake and Output Vital Signs (last 24 hours): Temp Pulse Resp BP Pulse Ox 98.8 F 78 20 110/73 97 08/02/18 08:29 08/02/18 08:29 08/02/18 08:29 08/02/18 08:29 08/02/18 08:29 - Medications Medications: Current Medications Acetaminophen (Tylenol 325mg Tab) 650 mg PO Q6 PRN PRN Reason: Fever >100.4 F Albuterol (Ventolin Hfa 90 Mcg/Actuation (8 G)) 2 puff IH TID PRN PRN Reason: Shortness of Breath Albuterol/Ipratropium (Duoneb 3 Mg/0.5 Mg (3 Ml) Ud) 3 ml INH RQ6 [facility] Last Admin: 08/02/18 07:21 Dose: Not Given Apixaban (Eliquis) 5 mg PO BID [facility]; Protocol Last Admin: 08/02/18 08:28 Dose: 5 mg Docusate Sodium (Colace) 100 mg PO BID [facility] Last Admin: 08/02/18 08:28 Dose: 100 mg Ergocalciferol (Drisdol 50,000 Intl Units Cap) 1 cap PO Q7D [facility] Last Admin: 07/27/18 21:32 Dose: 1 cap Magnesium Hydroxide (Milk Of Magnesia) 30 ml PO DAILY PRN PRN Reason: Constipation Montelukast Sodium (Singulair) 10 mg PO DAILY [facility] Last Admin: 08/02/18 08:29 Dose: 10 mg Multivitamins/Minerals (Therapeutic-M Tab) 1 tab PO DAILY [facility] Last Admin: 08/02/18 08:28 Dose: 1 tab Oxycodone HCl (Oxycontin Extended Release Tab) 20 mg PO Q12 [facility] Last Admin: 08/02/18 08:31 Dose: 20 mg Oxycodone/Acetaminophen (Percocet 5/325 Mg Tab) 2 tab PO Q6 PRN PRN Reason: Pain, severe (8-10) Stop: 08/04/18 18:31 Oxycodone/Acetaminophen (Percocet 5/325 Mg Tab) 1 tab PO Q6 PRN PRN Reason: Pain, moderate (4-7) Stop: 08/04/18 18:32 Last Admin: 08/02/18 04:21 Dose: 1 tab Pantoprazole Sodium (Protonix Ec Tab) 40 mg PO DAILY [facility] Last Admin: 08/02/18 08:28 Dose: 40 mg Pregabalin (Lyrica) 50 mg PO BID [facility] Last Admin: 08/02/18 08:31 Dose: 50 mg Fluticasone/Salmeterol (Advair Diskus 100/50) 1 puff INH Q12H [facility] Last Admin: 08/02/18 08:27 Dose: 1 puff Senna/Docusate Sodium (Senokot S 50 Mg-8.6 Mg) 2 tab PO HS PRN PRN Reason: Constipation Last Admin: 07/30/18 21:02 Dose: 2 tab - Labs Labs: 08/02/18 05:45 08/02/18 05:45 - Extremities Exam Additional comments: left knee: incision intact, no erythema, dry, ROM improving up to 75 on CPM, swelling improving, ankle swelling improved Assessment and Plan (1) Status post left knee replacement Assessment & Plan: for d/c home today f/u Dr. Kahn 08/05 no fevers, WBC normal cont PT/OT ambulation with walker continue eliquis 5mg PO BID pain medication as per medicine d/w Dr. Kahn, agrees with above Status: Acute (2) DVT (deep venous thrombosis) Status: Acute
[2018-08-02 15:13] VITALS: BP 106/71; PULSE 99; TEMP 99; O2SAT 96
--- NOTE | 2018-08-04 07:23 | CP.PCM.PN ---
Subjective - Date & Time of Evaluation Date of Evaluation: 08/01/18 Time of Evaluation: 07:35 Objective - Vital Signs/Intake and Output Vital Signs (last 24 hours): Temp Pulse Resp BP Pulse Ox 99.0 F 99 H 20 106/71 96 08/02/18 15:13 08/02/18 15:13 08/02/18 15:13 08/02/18 15:13 08/02/18 15:13 - Labs Labs: 08/02/18 05:45 08/02/18 05:45 Assessment and Plan (1) Anemia Status: Acute (2) DVT (deep venous thrombosis) Status: Acute (3) Primary osteoarthritis of left knee Status: Acute (4) Status post left knee replacement Status: Acute (5) Asthma Status: Chronic (6) HTN (hypertension) Status: Chronic
--- NOTE | 2018-08-04 07:25 | CP.PCM.DIS ---
Provider - Provider Date of Admission: 07/27/18 17:55 Attending physician: Adrianna Steinberg MD Primary care physician: Juanpablo Stiles MD Consults: 07/27/18 18:14 Case Management Referral Routine Comment: Physician Instructions: Reason For Exam: Reason for Referral: Discharge Planning 07/27/18 18:27 Physiatry Consult Routine Comment: Consulting Provider: Nacho Peterson Consulting Physician: Nacho Peterson Reason for Consult: s/p rt TKR ,I&D 07/29/18 07:32 Infectious Disease Consult Routine Comment: Consulting Provider: Rigo Conklin Consulting Physician: Rigo Conklin Reason for Consult: post op fevers, DVT, hemarthrosis Time Spent in preparation of Discharge (in minutes): 30 Diagnosis - Discharge Diagnosis (1) Anemia Status: Acute (2) DVT (deep venous thrombosis) Status: Acute Priority: High (3) Primary osteoarthritis of left knee Status: Acute (4) Status post left knee replacement Status: Acute Priority: Medium (5) Asthma Status: Chronic Priority: High (6) HTN (hypertension) Status: Chronic Priority: Medium Hospital Course - Lab Results Lab Results: Most Recent Lab Values WBC 9.7 K/uL (4.8-10.8) 08/02/18 05:45 RBC 3.92 Mil/uL (4.40-5.90) L 08/02/18 05:45 Hgb 10.7 g/dL (12.0-18.0) L 08/02/18 05:45 Hct 33.6 % (35.0-51.0) L 08/02/18 05:45 MCV 85.7 fl (80.0-94.0) 08/02/18 05:45 MCH 27.2 pg (27.0-31.0) 08/02/18 05:45 MCHC 31.7 g/dL (33.0-37.0) L 08/02/18 05:45 RDW 13.5 % (11.5-14.5) 08/02/18 05:45 Plt Count 506 K/uL (130-400) H 08/02/18 05:45 MPV 7.2 fl (7.2-11.7) 08/02/18 05:45 Neut % (Auto) 58.8 % (50.0-75.0) 08/02/18 05:45 Lymph % (Auto) 28.8 % (20.0-40.0) 08/02/18 05:45 Wirt % (Auto) 7.7 % (0.0-10.0) 08/02/18 05:45 Eos % (Auto) 3.9 % (0.0-4.0) 08/02/18 05:45 Baso % (Auto) 0.8 % (0.0-2.0) 08/02/18 05:45 Neut # (Auto) 5.7 K/uL (1.8-7.0) 08/02/18 05:45 Lymph # (Auto) 2.8 K/uL (1.0-4.3) 08/02/18 05:45 Wirt # (Auto) 0.7 K/uL (0.0-0.8) 08/02/18 05:45 Eos # (Auto) 0.4 K/uL (0.0-0.7) 08/02/18 05:45 Baso # (Auto) 0.1 K/uL (0.0-0.2) 08/02/18 05:45 Sodium 139 mmol/l (132-148) 08/02/18 05:45 Potassium 4.4 MMOL/L (3.6-5.0) 08/02/18 05:45 Chloride 99 mmol/L (98-107) 08/02/18 05:45 Carbon Dioxide 32 mmol/L (22-30) H 08/02/18 05:45 Anion Gap 12 (10-20) 08/02/18 05:45 BUN 13 mg/dl (9-20) 08/02/18 05:45 Creatinine 0.9 mg/dl (0.8-1.5) 08/02/18 05:45 Est GFR ( Amer) > 60 08/02/18 05:45 Est GFR (Non-Af Amer) > 60 08/02/18 05:45 Random Glucose 115 mg/dL (75-110) H 08/02/18 05:45 Calcium 9.2 mg/dL (8.4-10.2) 08/02/18 05:45 Discharge Exam - Head Exam Head Exam: ATRAUMATIC, NORMAL INSPECTION, NORMOCEPHALIC Discharge Plan - Follow Up Plan Condition: GOOD Disposition: HOME/ ROUTINE Instructions: Total Knee Replacement (DC), Wound Incision and Drainage (DC) Additional Instructions: Follow up with primary doctor within one week and Dr Kahn 130pm aug 05. Referrals: Juanpablo Stiles MD [Primary Care Provider] -
== END 2018-08-02 16:58 | disposition home or self-care (01) | DRG 560 ==
LOC: H.TCU 17:55
PROVIDERS: ADMIT Internal Medicine; ATTEND Internal Medicine
PROC: F07Z9FZ Gait Training/Functional Ambulation Treatment using Assistive, Adaptive, Supportive or Protective Equipment (ICD-10-PCS; principal; 2018-07-27)
PROC: F08Z4FZ Home Management Treatment using Assistive, Adaptive, Supportive or Protective Equipment (ICD-10-PCS; 2018-07-27)
PROC: F07L6FZ Therapeutic Exercise Treatment of Musculoskeletal System - Lower Back / Lower Extremity using Assistive, Adaptive, Supportive or Protective Equipment (ICD-10-PCS; 2018-07-28)
DX: Z47.1 Aftercare following joint replacement surgery (principal); D62 Acute posthemorrhagic anemia; Z96.652 Presence of left artificial knee joint; M17.12 Unilateral primary osteoarthritis, left knee; R50.82 Postprocedural fever; I25.10 Atherosclerotic heart disease of native coronary artery without angina pectoris; I10 Essential (primary) hypertension; D72.828 Other elevated white blood cell count; J45.909 Unspecified asthma, uncomplicated; Z86.718 Personal history of other venous thrombosis and embolism; Z87.440 Personal history of urinary (tract) infections; Z79.01 Long term (current) use of anticoagulants; Z88.0 Allergy status to penicillin; Z91.013 Allergy to seafood